=== PATIENT | female | born 1970 | race Caucasian/White ===

== ENCOUNTER 2025-08-05 11:45 | Outpatient (AMB) | payer MEDICARE, MEDICAID, SELFPAY ==
[2025-08-05 12:01] VITALS: BMI 33.3
--- NOTE | 2025-08-05 12:01 | A.PHYSOV_ITS ---
Vital Signs 08/05/25 12:01 Height 5 ft 8 in Weight 219 lb BMI 33.3 Intake Visit Reasons: F/U AFTER INJECTION 06/25/2025 Intake Note: Patient is a 55 year old female here today for a follow up after injection. Patient had a C7-T1 BECCA on 06/25/25. Psychologist Engineering Required: No Allergies amoxicillin Allergy (Unknown, Verified 08/05/25 12:03) Unknown aspirin Allergy (Unknown, Verified 08/05/25 12:03) Unknown HPI Comments Details: History of Present Illness The patient is a 55 year old female presenting for follow-up and management of chronic cervical radiculitis, low back pain as well as right knee pain. Patient underwent C7-T1 BECCA on 06/25/2025. She reports 70% reduction of her pain. She reports improved range of motion of her neck and less tingling in her upper extremity. Patient is very happy with her results. She also underwent left- sided L3-4, L4-5, L5-S1 facet injection on 05/03/2025. She reports 80% reduction of her pain. She reports that her pain is returning despite performing her physician directed home exercise plan and using her medications as prescribed. Patient is requesting repeat facet injection. We did place referral for lumbar facet ablation but she has not heard from the facility as of yet. She is also requesting cortisone injection to her right knee today. She denies any trauma. She has a pain level today of 7/10 worse with activity. Pain Description - Location: Reports horrible pain in the back and associated knee pain. - Quality: Describes the back pain as nerve pain. - Radiation: Experiences numbness in her leg associated with the back pain. - Alleviating Factors: Muscle relaxers help with the back pain. - Exacerbating Factors: Standing for approximately five minutes now brings on leg numbness. - Interference with Function: She is delaying an eventual knee replacement due to caregiving responsibilities for her parents. Procedure: C7-T1 BECCA 02/16/2024 50% reduction of her pain C7-T1 BECCA 06/05/2024 80% reduction of her pain Left L4 TFESI 07/24/2024 50% reduction of her pain Left L3-4, L4-5, L5-S1 facet injection 05/03/2025 80% reduction of her pain C7-T1 BECCA 06/25/2025 70% reduction of her pain PFS Surgical History (Updated 08/05/25 @ 12:07 by Mairta Cavazos MA) History of bladder surgery Hx of lumbosacral spine surgery History of ankle surgery H/O: hysterectomy H/O arthroscopic knee surgery H/O: knee surgery Social History (Updated 08/05/25 @ 12:05 by Marita Cavazos MA) Alcohol intake: current Comment: socially Patient Tobacco Use Status: Current someday Tobacco user Use of substances other than those prescribed or required for medical reasons: Yes Substance Use Type: Marijuana Review of Systems Narrative Review of Systems - Musculoskeletal: Reports chronic back pain and knee pain. - Neurological: Reports worsening numbness in her leg. - Dermatological: Reports developing blisters on her nose from the pressure of eyeglasses. Physical Exam Exam Exam: Physical Exam Cervical Spine: Examination of the cervical spine, there is no visible swelling or deformity. She is less tender to the upper trapezius. She has improved range of motion of her cervical spine. Special Tests: Axial Compression test: Negative Spurlings test: Negative Lhermitte's sign is Negative Upper Extremities: Full range of motion bilateral upper extremities. 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 Neuro: Sensation: Intact to upper extremities bilateral to light touch Strength C5 (Elbow Flexion): 5/5 on the left and 5/5 on the right. C6 (Elbow Ext): 5/5 on the left and 5/5 on the right. C7 (Elbow Ext): 5/5 on the left and 5/5 on the right. C8 (Finger Flex): 5/5 on the left and 5/5 on the right. T1 (Finger Abd/Add): 5/5 on the left and 5/5 on the right. DTR: C5 (Biceps): Left 2 Right 2 C6 (Brachioradialis): Left 2 Right 2 C7 (Triceps): Left 2 Right 2 Pacheco sign: Negative No pathologic clonus. No involuntary movement. Lumbar Spine: She is tender to the lower lumbar facets. She is otherwise nontender. Full range of motion of her lumbar spine. She does have an increase in pain with facet loading on the left. Special Tests: Lhermittes sign was negative Heel Toe walk is normal Left straight leg raise: Negative Right straight leg raise: Negative Special tests Helen test is negative Ganslen's test is negative SI Joint compression test negative Magdy test negative Piriformis stretch is negative Lower Extremities: Examination of her right knee, there is no effusion or deformity. She is tender to the medial joint line. She is otherwise nontender. Full range of motion of her knee in flexion-extension. Her ligaments are intact. Neuro: Sensation: Intact to lower extremities bilaterally Strength L2 (Psoas): 5/5 on the left and 5/5 on the right. L3 (Quads): 5/5 on the left and 5/5 on the right. L4 (Ant tibialis): 5/5 on the left and 5/5 on the right. L5 (EHL) 5/5 on the left and 5/5 on the right. S1 (Gastroc): 5/5 on the left and 5/5 on the right. DTR L4: (Patellar) Left 2 Right 2 S1: (Achilles) Left 2 Right 2 Babinski Downgoing No pathologic clonus. No involuntary movement. Vital Signs: BMI result Body Mass Index 33.3 Office Procedures AMB Knee Injection AMB Knee Injection Procedure Details: Right Knee injection: The risks, benefits and complications of the right knee injection were discussed with the patient including but not limited to increased serum glucose, infection, nerve pain, fat atrophy, pigment augmentation, bleeding and pain. All questions were answered to the patient's satisfaction. Verbal consent was obtained. The patient was eager to proceed. Using aseptic technique with Betadine, ethyl chloride was then used to desensitize the skin. Using a 22-gauge needle 40 mg of Kenalog and 3 mL 2% lidocaine were injected into the knee joint. A Band-Aid was applied. Patient tolerated the procedure well without immediate complication. Postinjection instructions were given. Knee Injection - : Right All charges added?: Procedure code (CPT) selection complete Office Meds Kenalog 40 mg/mL suspension for injection Performing Provider: EVE Bansal Performing Location: [facility] Administered by: EVE Bansal on 08/05/25 12:50 Dose Route Admin Location Dispensed Lot Number Expiration Date [facility] [place]NOTE 2] [employer] T[employer]or Apprentice 40 mg intra-articular 1 mL [id number] [employer] Total Dispensed Waste 1 mL 0 % lidocaine (PF) 20 mg/mL (2 %) injection solution Performing Provider: EVE Bansal Performing Location: [facility] Administered by: EVE Bansal on 08/05/25 12:50 Dose Route Admin Location Dispensed Lot Number Expiration Date [employer] Tailor Apprentice 60 mg intra-articular 50 mL [id number] Total Dispensed Waste 50 mL 0 % Assessment & Plan Assessment & Plan (1) Cervical radiculopathy: Code(s): M54.12 - Radiculopathy, cervical region Category: Medical (2) Vertebrogenic low back pain: Code(s): M54.51 - Vertebrogenic low back pain Category: Medical (3) Osteoarthritis of right knee: Code(s): M17.11 - Unilateral primary osteoarthritis, right knee Category: Medical Qualifiers: Osteoarthritis type: primary Qualified Code(s): M17.11 - Unilateral primary osteoarthritis, right knee Plan Pain Management - Analgesia: The patient reports that muscle relaxers help her back pain. - She received facet shots in April which were helpful, but the effects are wearing off. - Her last cortisone shot for knee pain was in February. - Activities of Daily Living: Leg numbness now begins after standing for only five minutes. 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 - Adverse Effects: She notes that previous facet shots were painful. - Aberrant Drug Related Behaviors: None discussed. Plan Patient was informed and verbally consented to the use of an ambient scribe for clinic note documentation during this visit. 1. Chronic Low Back Pain, patient responded very well to lumbar facet injection in April with greater than 80% reduction of her pain for 3 months. Patient's pain has returned despite performing her physician directed home exercise plan and using her medications as prescribed. She is requesting repeat lumbar facet injection which I will order today. 2. Osteoarthritis Of The Knee The patient requested treatment for her knee pain. Her last knee injection was in February, making her eligible for another. A cortisone injection will be administered to the knee during this visit after obtaining consent. 3. Cervical radiculopathy. Patient responded very well to C7-T1 BECCA on 2024. She will continue her home exercise plan and medications as prescribed. Discussion Notes I discussed the patient's ongoing back pain and the waning effectiveness of her April facet injections. I clarified that a radiofrequency ablation would target her back pain but would not help her worsening leg numbness. We agreed that she would get a second opinion from Dr. Mike, an orthopedic surgeon, before making a decision on the ablation. We also discussed her knee pain, and since her last injection was in February, I offered to give her a cortisone shot today, to which she agreed after I mentioned obtaining consent. Patient Instructions - Please make an appointment to see Dr. Mike for a second opinion on your back pain. - We will perform a cortisone injection in your knee today for pain relief. - After your appointment with Dr. Mike, we can discuss whether a radiofrequency ablation for your back is the right choice for you. - Continue using your muscle relaxers as they are helping your back pain. Orders: Orders AMB Knee Injection Today M17.11 - Unilateral primary osteoarthritis, right knee Coding Level of Care Code Tele Est Pt Level 4 (37333) Diagnoses Cervical radiculopathy M54.12 Vertebrogenic low back pain M54.51 Primary osteoarthritis of right knee M17.11 Osteoarthritis type: primary CPT Codes AMB Knee Injection - Hip/Bursa Injection - : Right ([id number]) Time Spent (min) 30 Comment 30 minutes reviewing the medical record and imaging, seeing the patient and docu menting.
== END 2025-08-05 12:37 | disposition home or self-care (01) ==
LOC: HO.HPHYS 11:45
PROVIDERS: PCP Internal Medicine; Visit Provider Physician Assistant
DX: M54.12 Radiculopathy, cervical region (principal); M54.51 Vertebrogenic low back pain; M17.11 Unilateral primary osteoarthritis, right knee
CPT/HCPCS: 20610; 99214

== ENCOUNTER → 2025-08-05 11:45 | Outpatient (BNVA) | payer MEDICARE, MEDICAID, SELFPAY | PROVIDERS: PCP Internal Medicine; Visit Provider Physician Assistant | DX: M17.11 Unilateral primary osteoarthritis, right knee (principal); M54.12 Radiculopathy, cervical region; M54.51 Vertebrogenic low back pain | CPT/HCPCS: 20610; 99212; J2003; J3301 ==

== ENCOUNTER 2025-08-16 11:05 | Outpatient (REF) | payer MEDICARE, MEDICAID, SELFPAY | END 2025-08-16 11:06 | disposition home or self-care (01) | LOC: HO.HPHYSR 11:05 | PROVIDERS: PCP Internal Medicine; Visit Provider Physical Medicine & Rehabilitation | DX: M47.816 Spondylosis without myelopathy or radiculopathy, lumbar region (principal) | CPT/HCPCS: 64493; 64494; 64495; J2003; J3301; Q9967 ==

== ENCOUNTER 2025-08-16 11:05 | Outpatient (AMB) | payer MEDICARE, MEDICAID, SELFPAY ==
[2025-08-16 11:23] VITALS: BP 117/83; PULSE 99; TEMP 36.4; BMI 33.3
--- NOTE | 2025-08-16 11:23 | A.PHYSOV ---
Vital Signs 08/16/25 11:23 Height 5 ft 8 in Weight 219 lb BMI 33.3 BP 117/83 Pulse 99 Temp 97.6 F Intake Visit Reasons: Left Lumbar Facet Injection L3-4 L4-5 L5-S1 Intake Note: Patient is a [age] year old female in office today for a Left Lumbar Facet Injection L3-4 L4-5 L5-S1. Library Specialist Required: No Allergies amoxicillin Allergy (Unknown, Verified 08/16/25 11:23) Unknown [facility] Medical History (Updated 08/16/25 @ 11:35 by Jose Flores DO) Spondylosis of lumbar region without myelopathy or radiculopathy Surgical History History of bladder surgery Hx of lumbosacral spine surgery History of ankle surgery H/O: hysterectomy H/O arthroscopic knee surgery H/O: knee surgery Social History Alcohol intake: current Comment: socially Patient Tobacco Use Status: Current someday Tobacco user Substance Use Type: Marijuana Physical Exam Vital Signs: Last Vital Signs Temp 97.6 F 08/16/25 11:23 Pulse 99 08/16/25 11:23 BP 117/83 08/16/25 11:23 BMI result Body Mass Index 33.3 Office Procedures Procedure Details: Procedure performed: Left L3-L4, L4-L5, L5-S1 facet joint injections Preop diagnosis: Lumbar facet arthropathy Postop diagnosis: The same Anesthesia: Local After informed consent was obtained, patient was brought into the procedure room and placed in the prone position on the procedure table. Skin over the lumbar sacral area was prepped and draped in the usual sterile manner. The facet joints indicated above were visualized utilizing fluoroscopy. For each joint 3.5 inch 22 gauge spinal needle was introduced percutaneously and advanced to enter the joint space. Needle placement was verified utilizing 0.2 cc of Omnipaque contrast solution. Each joint received total 1.5 cc of therapeutic solution containing 20 mg of of triamcinolone and 2% lidocaine. Radiation exposure was recorded and documented in chart. 49697 Lumbar Facet Inj SINGLE Level- use with FL Gd order: [id number] - One Side 67706 Lumbar Facet Inj SECOND Level- use with FL Gd order: [id number] - One Side 43433 Lumbar Facet Inj THIRD or Greater- use w FL Gd order: [id number] - Bilateral (Left side) Procedure code (CPT) selection complete Office Meds Kenalog 40 mg/mL suspension for injection Performing Provider: Jose Flores DO Performing Location: [facility] Administered by: Jose Flores DO on 08/16/25 11:36 Dose Route Admin Location Dispensed Lot Number Expiration Date [facility] Telecommunication Operator 60 mg intra-articular 2 mL [id number] [employer] Total Dispensed Waste 2 mL 25 % lidocaine (PF) 20 mg/mL (2 %) injection solution Performing Provider: Jose Flores DO Performing Location: [facility] Administered by: Jose Flores DO on 08/16/25 11:36 Dose Route Admin Location Dispensed Lot Number Expiration Date [facility] Telecommunication Operator 40 mg intra-articular 5 mL [id number] [employer] Total Dispensed Waste 5 mL 60 % Omnipaque 300 300 mg iodine/mL intravenous solution Performing Provider: Jose Flores DO Performing Location: [facility] Administered by: Jose Flores DO on 08/16/25 11:36 Dose Route Admin Location Dispensed Lot Number Expiration Date [facility] Telecommunication Operator 3 mL intra-articular 10 mL [id number] Total Dispensed Waste 10 mL 70 % Assessment & Plan Assessment & Plan (1) Spondylosis of lumbar region without myelopathy or radiculopathy: Code(s): M47.816 - Spondylosis without myelopathy or radiculopathy, lumbar region Category: Medical Plan: Left lumbar facet injections Orders: Orders FL Gd Lumbar Spine Facet Inj Today M47.816 - Spondylosis without myelopathy or radiculopathy, lumbar region AMB Lumbar Facet Injection Today M47.816 - Spondylosis without myelopathy or radiculopathy, lumbar region Coding Level of Care Code Procedure Only Diagnoses Spondylosis of lumbar region without myelopathy or radiculopathy M47.816 CPT Codes Lumbar Facet Injection - 22290 Thoracic Facet Inj CPT: 89069 - One Side ([id number]) Lumbar Facet Injection - 29446 Thoracic Facet Inj CPT: 62485 - One Side ([id number]) Lumbar Facet Injection - 33297 Thoracic Facet Inj CPT: 94048 - Bilateral ([id number])
--- OUTSIDE RECORDS SUMMARY | 2025-08-16 13:02 | XMS_ITS ---
Author Name [facility] Organization Unknown Care Team Organization Name Specialty Phone Email Start Date End Da te [facility]CO 04/17/2025 [facility] Castillo Arevalo Primary Care 02/04/20232023 [facility] Termed, PROVIDER Primary Care 07/06/202203/29
--- OUTSIDE RECORDS SUMMARY | 2025-08-16 13:02 | XMS_ITS ---
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 She is currently stable with her current regimen. Continue the following: Amitriptyline 10mg qHS Famotidine 20mg daily Omeprazole 40mg BID Colestipol 1g, two tablets daily Zofran 4mg tablet PRN nausea, which is typically once daily in the mornings. I will adjust her prescription to reflect daily use as she states she often runs out before her next refill. Side effects of these medications reviewed. Orders: ondansetron (ZOFRAN) 4 mg tablet; Take 1 tablet (4 mg total) by mouth 1 (one) time each day. Assessment & Plan (11/09/2024 5:13 PM EDT): Refill Zofran, continue use only as needed. Continue amitriptyline 10mg qHS. Orders: ondansetron (ZOFRAN) 4 mg tablet; Take 1 tablet (4 mg total) by mouth every 8 (eight) hours if needed for nausea or vomiting. amitriptyline (ELAVIL) 10 mg tablet; Take 1 tablet (10 mg total) by mouth at bedtime. Irritable bowel syndrome 11/09/2024 Vomiting and diarrhea 07/02/2024 Overview (07/02/2024): Chronic issue, experienced for 5+ years. Negative labwork at last visit 05/01/24. Improving with zofran as needed GES: normal gastric emptying 04/24/24 UGI series - small HH, GERD otherwise unremarkable 02/20/24 Last C+E 11/2020 Assessment & Plan (11/09/2024 5:13 PM EDT): Continue colestipol as needed for diarrhea. Orders: amitriptyline (ELAVIL) 10 mg tablet; Take 1 tablet (10 mg total) by mouth at bedtime. colestipoL (COLESTID) 1 gram tablet; Take 1 tablet (1 g total) by mouth 2 (two) times a day if needed (diarrhea). Assessment & Plan (07/02/2024 5:36 PM EST): Repeat colonoscopy and upper endoscopy Trial of amitriptyline 10 mg PO qHS Follow up in 3 months Consider trial of discontinuing Mounjaro, may be contributing to severity of symptoms. Class 2 severe obesity due t o excess calories with serious comorbidity and body mass index (BMI) of 37.0 to 37.9 in adult 06/18/2024 Long-term current use of inj ectable noninsulin antidiabetic medication 10/25/2023 Class 2 obesity 09/12/2023 Current smoker 09/12/2023 Osteoarthritis of left knee 09/12/2023 Polyp of corpus uteri 09/12/2023 Spondyloarthropathy 09/12/2023 Cervical spondylosis 07/12/2023 Overview (05/31/2024): Last Assessment & Plan: Ms. De La Cruz describes diffuse neck pain without specific radiation to the arms, clumsiness or weakness. We reviewed her cervical spine MRI which has some mild findings but nothing that would warrant surgical intervention. We discussed physical therapy traction, posture correction, and avoiding heavy lifting. Assessment & Plan (01/08/2025 2:34 PM EDT): I reviewed the imaging findings in detail with Ms. De La Cruz. She does have degenerative changes worse at C6-7 but her alignment is normal, there is no severe foraminal stenosis and while there is some central stenosis, this is not a set up for myelopathy. Her main complaint is of neck pain and occasions of poor mobility. We discussed the option of surgery which at a minimum would be C6-7 ACDF, at a maximum we would include 1 or 2 other levels. Overall, when this is done purely for neck pain and without the intended relief of radiculopathy, the lasting results are not as promising. She has full mobility on her good days now and will obviously be more limited with the fusion. She has not tried physical therapy in many years and does not recall ever trying cervical traction. I recommended this first as it may relieve this feeling of a heavy weight on her shoulders. If this works for her, we can prescribe a unit to use at home. She has been unable to try things like acupuncture due to finances and that it is not covered by insurance. Lumbar stenosis with neurogenic claudication Overview (05/31/2024): Last Assessment & Plan: Patient is just over 2 weeks s/p L4-5 decompression. She states she seen good results from surgery, she no longer has the pinched nerve feeling , no pain radiating down the legs, she is moving around much better. She states she did not realize how much the lumbar stenosis was holding her back the last 2 years. She has chronic numbness tingling in the feet, has history of diabetes, but has noticed that that is also somewhat improved. She denies any fevers, sweats chills, wound drainage. She still has some incisional pain, was using the oxycodone sparingly, but feels it would still help her at night. She has Ultram at home for her chronic arthritis pain, but has not been using it while on the oxycodone. Ms. De La Cruz is doing well postop, can follow-up as needed. All postop questions answered. She does not feel she needs physical therapy, has been increasing her activity as tolerated, doing some light lillie chi and walking. I gave her a refill on her oxycodone #20 tabs, to use at bedtime as needed. She will call with any concerns or questions. Type 2 diabetes mellitus wit hout complication, without long-term current use of insulin 04/23/2022 Type 2 diabetes mellitus with peripheral neuropa thy 04/23/2022 Overview (02/28/2025): Dx 2021, ophtho - Jun Eye; foot exam December 2022 DUB (dysfunctional uterine bleeding) 01/01/2020 Hypertension 01/01/2020 Hypothyroidism 04/25/2018 Overview (05/31/2024): Dr. Verde Mammogram abnormal 08/15/2017 Allergic rhinitis 07/27/2017 Vitamin D deficiency 04/24/2017 Anxiety 04/21/2017 Hypercholesterolemia 02/08/2017 Thyroid neoplasm malignant 07/19/2016 Overview (05/31/2024): Follows with endocrinology, Dr. 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 Botello then Dr. Hampton Esophageal reflux 07/12/2013 Assessment & Plan (11/09/2024 5:13 PM EDT): Continue omeprazole 40mg BID for GERD. Prescribing Famotidine 20mg PRN for heartburn, indigestion, nausea. Try in place of zofran, if no improvement after 20-25 minutes please take Zofran. Orders: famotidine (Pepcid) 20 mg tablet; Take 1 tablet (20 mg total) by mouth if needed for heartburn or indigestion. omeprazole (PriLOSEC) [address] capsule; Take 1 capsule (40 mg total) by mouth 2 (two) times a day. Fibromyalgia 10/25/2011 Current Treatment and Therapy Plans No current plan information found. Past Treatment and Therapy Plans No past plan information found. Lifetime Dose Tracking * Chemical Lifetime Dose Automatic Entry Manual Entr y Fluoro Time 0.46 minutes 0.46 minutes 0 minutes Air Kerma 4.08 mGy 4.08 mGy 0 mGy
--- OUTSIDE RECORDS SUMMARY | 2025-08-16 13:02 | XMS_ITS | Clinical Summary ---
Author Organization [facility] Prior to 01/26/[address] [place] [address] Care Team Providers Care Regulatory Intern Name Role Phone Noemi Collins MD Primary Care Provider [phone] Allergies Active Allergy Reactions Criticality Noted Date Comments Amoxicillin 08/09/2017 Aspirin 08/09/2017 Medications Medication Sig Dispensed Refills Start Date End Date Status cholecalciferol (VITAMIN D3) 1000 UNITS tablet Take 2,000 Units by mouth daily. 0 Active doxycycline (ADOXA) 100 MG tablet Take 100 mg by mouth 2 (two) times a day. 0 Active LORazepam (ATIVAN) 0.5 MG tablet Take 0.5 mg by mouth every 6 (six) hours as needed. 0 Active Multiple Vitamin (MULTI VITAMIN DAILY PO) Take by mouth. 0 Active naproxen (NAPROSYN) 500 MG tablet Take 500 mg by mouth 2 (two) times a day with meals. 0 Active omeprazole (PRILOSEC) 20 MG capsule Take 20 mg by mouth daily. 0 Active Probiotic Product (PROBIOTIC PO) Take by mouth. 0 Active sulfaSALAzine (AZULFIDINE) 500 MG EC tablet Take 500 mg by mouth 4 (four) times a day. 0 Active levothyroxine (SYNTHROID, LEVOXYL) tablet 200 mcg Take 200 mcg by mouth every morning on an empty stomach. 0 Active traMADol (ULTRAM) 50 MG tablet Take 50 mg by mouth every 6 (six) hours as needed for pain. 0 Active norethindrone (ILEANA) 0.35 MG tablet Take 1 tablet by mouth daily. 0 Active Active Problems No known active problems Family History Medical History Relation Name Comments Cancer Maternal Aunt breast Cancer Mother breast Relation Name Status Comments Maternal Aunt Mother Social History Tobacco Use Types Packs/Day Years Used Date Smoking Tobacco: Former Cigarettes 1 Smokeless Tobacco: Never Alcohol Use Standard Drinks/Week Comments No 0 (1 standard drink = 0.6 oz pur e alcohol) Sex and Gender Information Value Date Recorded Sex Assigned at Not on file Gender Identity Not on file Sexual Orientation Not on file Job Start Date Occupation Industry Not on file Not on file Not on file Last Filed Vital Signs Vital Sign Reading Time Taken Comments Blood Pressure 141/90 09/13/2017 1:15 PM EST Pulse 93 09/13/2017 1:15 PM EST Temperature - - Respiratory Rate - - Oxygen Saturation - - Inhaled Oxygen Concentration - - Weight 98.4 kg (217 lb) 09/13/2017 1:15 PM EST Height 170.2 cm (5' 7 ) 09/13/2017 1:15 PM EST Body Mass Index 33.99 09/13/2017 1:15 PM EST Plan of Treatment Health Maintenance Due Date Last Done Comments Hepatitis B Vaccines (1 of 3 - 3-dose series) 1968 Hepatitis C Screening 1968 COVID-19 Vaccine (#1) 1968 Depression Screening 1980 Preventative Health Evaluation 02/16/1986 DTap / Tdap / Td (1 - Tdap) 02/16/1987 Cervical Cancer Screening (P ap Smear) 02/16/1989 Colon Cancer Screening (Colonoscopy) 02/16/2013 Breast Cancer Screening (Mammogram) 02/16/2018 Shingrix-Zoster Vaccine (1 of 2) 02/16/2018 Influenza Vaccine (#1) 2025 Pneumococcal Vaccine Aged Out No long er eligible based on patient's age to complete this topic RSV Ped < 20 months Aged Out No longe r eligible based on patient's age to complete this topic Care Teams Regulatory Intern Relationship Specialty Start Date End Date Noemi Collins MD [address] [place] [id number] PCP - General Family Medicine 08/09/17
--- OUTSIDE RECORDS SUMMARY | 2025-08-16 13:03 | XMS_ITS | Clinical Summary ---
Author Organization [facility] Address [address] [place] [phone] Phone Care Team Providers Care Counseling Case Manager Name Role Phone Castillo Arevalo MD Primary Care Provider Allergies Active Allergy Reactions Criticality Noted Date Comments Amoxicillin Diarrhea 06/02/2017 Aspirin 07/19/2016 Drug interaction with current list of medcation House Dust 10/10/2024 [place] (Viscum Pini - From [place]) 02/18/2025 Medications atorvastatin (LIPITOR) 80 MG tablet Take 80 mg by mouth every morning. 12/14/19 Active multivitamin per tablet Take by mouth. Activ e Lactobacillus acidophilus (PROBIOTIC ORAL) Take by mouth daily. Active ascorbic acid, vitamin C, (VITAMIN C) 1000 MG tablet Take 2,000 mg by mouth daily as needed (cold season). Active traMADoL (ULTRAM) 50 mg tablet Take 50 mg by mouth 3 (three) times a day. Active sulindac (CLINORIL) 200 MG tablet Take 200 mg by mouth 2 (two) times a day with meals. 10/28/19 Active losartan (COZAAR) 50 MG tablet Take 1 tablet by mouth every morning. 12/10/19 Active LORazepam (ATIVAN) 0.5 MG tablet Take 1 tablet by mouth once as needed. 10/29/19 Active omeprazole (PRILOSEC) 40 MG capsule Take 40 mg by mouth 2 (two) times a day. 10/20/19 Active clindamycin (CLEOCIN) 300 MG capsule Take 600 mg by mouth daily as needed (dental appt). Active acetaminophen (TYLENOL ARTHRITIS PAIN) 650 MG CR tablet Take 1,300 mg by mouth 2 (two) times a day. Active loratadine (CLARITIN) 10 mg tablet Take 10 mg by mouth daily. Active cholecalciferol (VITAMIN D3) 25 MCG (1,000 unit) tablet Take 2,000 Units by mouth daily. Active colestipol (COLESTID) 1 gram tablet TAKE 2 TABLETS BY MOUTH DAILY. MAY INCREASE TO 2 TIMES A DAY. IF NO IMPROVEMENT Active ondansetron (ZOFRAN) 4 MG tablet Take 4 mg by mouth every 8 (eight) hours as needed for nausea. Active amitriptyline (ELAVIL) 10 MG tablet Take 1 tablet by mouth nightly at bedtime. 09/04/19 25 Active cetirizine (ZYRTEC) 10 MG tablet Take 10 mg by mouth daily. Active ONETOUCH UKTRA2 meter kitIndications:Typ e 2 diabetes mellitus with peripheral neuropathy To test blood glucose daily dx E11.42 1 each 02/19/20 25 Active ONETOUCH DELICA PLUS LANCET 30 gauge MiscIndications:Ty pe 2 diabetes mellitus with peripheral neuropathy Place 1 each onto the skin 2 (two) times a day. 200 each 3 02/19/20 25 Active ONETOUCH ULTRA TEST Strp stripsIndications: Type 2 diabetes mellitus with peripheral neuropathy USE TO TEST BLOOD SUGAR TWICE DAILY 100 strip 3 06/04/20 25 Active SYNTHROID 175 mcg tabletIndications: Postoperative hypothyroidism 1 tab orally six days/week, skip 7th day 78 tablet 3 06/17/20 25 Active metFORMIN (GLUCOPHAGE-XR) 500 MG 24 hr tabletIndications: Type 2 diabetes mellitus with peripheral neuropathy TAKE 3 TABLETS DAILY 270 tablet 3 06/17/20 25 Active gabapentin (NEURONTIN) 300 MG capsuleIndications :Type 2 diabetes mellitus with peripheral neuropathy Take 1 capsule (300 mg total) by mouth 3 (three) times a day. 270 capsule 3 06/17/20 25 Active tirzepatide (MOUNJARO) 12.5 mg/0.5 mL PnIj subcutaneous penIndications:Typ e 2 diabetes mellitus with peripheral neuropathy Inject 0.5 mL (12.5 mg total) under the skin every 7 days. 2 mL 5 08/01/20 25 Active hydrocortisone 1 % cream Apply topically. 08/14/20 24 025 tirzepatide (MOUNJARO) 10 mg/0.5 mL PnIj subcutaneous penIndications:Typ e 2 diabetes mellitus with peripheral neuropathy Inject 0.5 mL (10 mg total) under the skin every 7 days. 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 She is not using any medications to cause hypoglycemia. She is getting some response from the trulicity but not optimal enough, especially in the setting of up coming back surgery. Will try changing her mounjaro to see if we can get a glucose response from it with the added benefit of the potential for more weight loss. Will not cancel her trulicity prescription until we know the mounjaro is covered. Once she finishes her last dose of trulicity she will then the following week start the mounjaro. Continue to work on eating healthy and trying to be active. To call or message with any issues managing her glucose levels. Up to date with [facility]. Labs ordered today Assessment & Plan (04/26/2023 8:16 AM EDT): Control is reasonable based upon the patient's recall of her SMBG readings. No frequent or severe hypoglycemia. Her glucose levels are likely running higher due to the dual infection of shingles and a yeast infection. She is being treated for both. Will try increasing her trulicity to 1.5 mg to help improve her glucose control and potentially see a little bit of weight loss which will help improve her insulin sensitivity. Continue to work on eating healthy and being active. To call or message with any issues managing her glucose levels. Up to date with [facility]. Labs ordered today Type 2 diabetes mellitus with peripheral neuropa thy 04/23/2022 12/30/2022 Overview (12/30/2022): Dx 2021, ophtho - Jun Eye; foot exam December 2022 Assessment & Plan (06/17/2025 12:46 PM EDT): Control is good based upon the patient's SMBG readings. She is not using any medications to cause hypoglycemia. Will try increasing her mounjaro to 10 mg to help further improve her glucose control. Continue to work on eating healthy and being active. To call or message with any issues managing her glucose levels. Up to date with [facility]. Labs ordered. I have maintained a long-term, longitudinal relationship with this patient, overseeing care of chronic conditions, including diabetes. This care relationship has significantly influenced my decision-making and treatment plans during today's encounter. Assessment & Plan (02/18/2025 12:14 PM EDT): Control is good based upon the patient's limited SMBG readings. She is not using any medications to cause hypoglycemia. Will maintain her regimen. Continue to work on eating healthy and being active. To call or message with any issues managing her glucose levels. Up to date with [facility]. Labs ordered. I have maintained a long- term, longitudinal relationship with this patient, overseeing care of chronic conditions, including diabetes. This care relationship has significantly influenced my decision-making and treatment plans during today's encounter. Assessment & Plan (09/25/2024 8:12 AM EST): Control is unknown as the patient is not consistently checking her glucose levels. Historically control has been good based upon her last A1C of 6.5%. She is not using any medications to cause hypoglycemia. She would like to try increasing her mounjaro to 10 mg a week to see if this will further improve her glucose control. Continue to work on eating healthy and being active. To call or message with any issues managing her glucose levels. Up to date with [facility]o, annual is scheduled for September. Labs ordered Assessment & Plan (05/15/2024 3:16 PM EDT): Control has been good. Continue to work on eating healthy & keeping active. To call or send in BG with problems with glycemic control. [facility] Umal[facility]creat up to date, normal. Foot & nail care good. Given short duration of DM, suspect neuropathy more related to back. Will refill gabapentin, did advise she restart at 1 tablet daily & titrate back up to the tid dosing. Will do labs today. To call if hasn't heard from us within 1-2 weeks. BP under reasonable control. Assessment & Plan (01/30/2024 12:31 PM EDT): Control is good based upon the patient's SMBG readings. She is not using any medications to cause hypoglycemia. She was finally able to get her moujaro after being off of it for 2 weeks due to lack of supply at the pharmacy. She will restart her mounjaro later today. Continue to work on eating healthy and being active. To call or message with any issues managing her glucose levels. Due to schedule annual for [facility]. Labs were done with [facility] will call for results. Assessment & Plan (10/25/2023 11:18 AM EST): Control deteriorated after surgery, likely due to stress & being off of trulicity. Will shift to mounjaro. Continue to work on eating healthy & keeping active. To call or send in BG with problems with glycemic control. [facility] Will do labs today. o call if hasn't heard from us within 1-2 weeks. BP under reasonable control. Assessment & Plan (12/30/2022 1:15 PM EDT): Control good. Continue to work on eating healthy & keeping active. To call or send in BG with problems with glycemic control. [facility] Foot & nail care good. Will do labs today. To call if hasn't heard from us within 1-2 weeks. BP under reasonable control. Discussed use of GLP1 agonists w/ risks/benefits. Thyroid CA was NOT medullary so no contraindication. No hx pancreatitis. Discussed could add one of the GLP1 agonists, depending on labs might lower dose of metformin as may not need both agents. Hypertension 01/01/2020 12/30/2022 Postoperative hypothyroidism 04/25/201811/2022 Overview (12/30/2022): Dr. Verde Assessment & Plan (06/17/2025 12:45 PM EDT): Will check levels to determine if medication adjustments are needed Assessment & Plan (02/18/2025 12:12 PM EDT): Will check levels to determine if medication adjustments are needed Assessment & Plan (09/25/2024 8:07 AM EST): Will check levels to determine if medication adjustments are needed Assessment & Plan (05/15/2024 3:14 PM EDT): Will repeat labs today & adjust as appropriate. To call if hasn't heard from me within 1-2 weeks. Assessment & Plan (01/30/2024 12:29 PM EDT): Had blood work done with [facility] will get results to determine if medication adjustments are needed Assessment & Plan (10/25/2023 11:16 AM EST): Reports good consistency taking rx appropriately, has from [facility]. Weight has come down slightly. Will repeat labs today & adjust as appropriate. To call if hasn't heard from me within 1-2 weeks. Assessment & Plan (07/26/2023 12:00 PM EST): Will check levels to determine if medication adjustments are needed Assessment & Plan (04/26/2023 8:16 AM EDT): Will check levels to determine if medication adjustments are needed Assessment & Plan (12/30/2022 1:13 PM EDT): Reports good consistency taking rx appropriately. Weight has been stable. Will repeat labs today. To call if hasn't heard from me within 1-2 weeks. Vitamin D deficiency 04/24/2017 12/30/2022 Assessment & Plan (01/30/2024 12:29 PM EDT): Had blood work done with [facility] will get results to determine if medication adjustments are needed Anxiety 04/21/2017 12/30/2022 Hypercholesterolemia 02/08/2017 12/30/2022 Thyroid neoplasm malignant 07/19/201612/30 Overview (12/30/2022): Hurthle cell CA, microscopic papillary CA, s/p total thyroidectomy & WALLS, no evidence of residual or recurrent disease Follows with endocrinology, Dr. Verde Assessment & Plan (05/15/2024 3:14 PM EDT): Has had no evidence of residual or recurrent disease. Assessment & Plan (10/25/2023 11:16 AM EST): Has had no evidence of residual or recurrent disease. Assessment & Plan (12/30/2022 1:13 PM EDT): No evidence of residual or recurrent disease. Spondyloarthritis 01/30/2015 12/30/2022 Overview (12/30/2022): Sees ATC, Dr. Botello then Dr. Hampton Esophageal reflux 07/12/2013 12/30/2022 Fibromyalgia 10/25/2011 12/30/2022 Encounters Date Type Department Care Team Description 07/31/2025 Telephone [facility] [address] [place] [address] Lisa Grijalva MA Medication Refill (Mounjaro) 07/02/2025 Telephone [facility] [address] [place] [address] Bing Navarro PA-C Patient Returned Call; Results 06/27/2025 3:53 PM EDT - 06/27/2025 11:59 PM EDT Hospital Encounter [facility] [address] [place] [address] Bing Navarro PA-C Discharge Disposition: Home or Self Care 06/17/2025 11:40 AM EDT Office Visit [facility] [address] [place] [address] Bing Navarro PA-C Type 2 diabetes mellitus with peripheral neuropathy (Primary Dx); Postoperative hypothyroidism 06/01/2025 Refill [facility] [address] [place] [phone] Bing Navarro PA-C Medication Refill from Last 3 Months Immunizations Immunization Administration Dates Next Due COVID-19 (Pre-06/20) Moderna Vaccine, mRNA, PF 10/31/2020,10/06/2020,10/03/2020 COVID-19 (Pre-06/20) Pfizer Vaccine, mRNA, PF 09/06/2021 INFLUENZA, SPLIT VIRUS, TRIVALENT PF 05/04/2017, 06/05/2015,07/12/2013 INFLUENZA, SPLIT VIRUS, TRIV ALENT W/ PRESERVATIVE IM 04/25/2018,04/28/2012,06/14/2011 Influenza High-Dose Trivalen t Preservative Free IM 06/25/2016 Influenza Quadrivalent Intranasal 06/20/2022 Influenza Quadrivalent MDCK Preservative Free IM 07/27/2021,05/31/2019 Influenza Quadrivalent Preservative Free IM 04/30 Pneumococcal polysaccharide PPSV23 06/20/2022 Td (adult),2 Lf Tetanus Toxo id, PF, Adsorbed 11/20/2002 Tdap 02/23/2022 Social History Tobacco Use Types Packs/Day Years Used Date Smoking Tobacco: Some Days Cigarettes 1 30 Started: 1986; Last attempted to quit: 2016 Cigars Started: 2016 Smokeless Tobacco: Never Tobacco Cessation:Ready to Q uit: Not Asked; Counseling Given: Not Answered Alcohol Use Standard Drinks/Week Comments Yes 2 (1 standard drink = 0.6 oz pur e alcohol) social Education Answer Date Recorded Are you interested in more education? Not on albertina e 12/24/2022 Are you concerned about learning? Not on file 12/24/2022 No 12/24/2022 No 12/24/2022 Digital Access Answer Date Recorded No 01/22/2023 No 01/22/2023 Reliable internet access at home? Not on file 01/22/2023 Device with a working camera? Not on file Comments Unknown Sex and Gender Information Value Date Recorded Sex Assigned at Not on file Legal Sex Female 9:38 PM EDT Gender Identity Not on file Sexual Orientation Not on file Last Filed Vital Signs Vital Sign Reading Time Taken Comments Blood Pressure 120/70 06/17/2025 11:45 AM EDT Pulse 91 06/17/2025 11:45 AM EDT Temperature 36.4 C (97.6 F) 09/24/2024 2:08 PM EST Respiratory Rate 12 09/24/2024 2:08 PM EST Oxygen Saturation 97% 06/17/2025 11: 45 AM EDT Inhaled Oxygen Concentration - - Weight 100.8 kg (222 lb 3.2 oz) 025 11:45 AM EDT Height 172.7 cm (5' 7.99 ) 06/17/2025 1 1:45 AM EDT Body Mass Index 33.79 06/17/2025 11:45 AM EDT Plan of Treatment Upcoming Encounters Date Type Department Care Team (Late st Contact Info) Description 08/19/2025 11:00 AM EST Office Visit [facility] [address] [place] [phone] Bing Navarro PA-C [address] [place] [phone] 11/18/2025 11:00 AM EDT Office Visit [facility] [address] [place] [phone] Sindy Verde MD [address] [address] [email or web address] 02/24/2026 11:00 AM EDT Office Visit [facility] [address] [place] [place] [address] Sindy Verde MD [address] [place] [phone] [email or web address] Health Maintenance Due Date Last Done Comments DEPRESSION SCREENING 1980 HIV ONE-TIME SCREENING (18-65 YEARS) 02/16/1986 ZOSTER VACCINES (1 of 2) 02/16/1987 COLOGUARD 02/16/2013 COLONOSCOPY 02/16/2013 COLORECTAL CANCER SCREENING 02/16/2013 FIT TEST 02/16/2013 FOBT 02/16/2013 SIGMOIDOSCOPY 02/16/2013 VIRTUAL COLONOSCOPY 02/16/2013 LUNG CANCER SCREENING (LDCT Only) 02/16/2018 RSV VACCINE (1 - Risk 50-74 years 1-dose series) 02/16/2018 PAP SMEAR 06/22/2022 06/22/2019 DIABETIC EYE EXAM 12/30/2022 PNEUMOCOCCAL VACCINES (50+ years) (2 of 2 - PCV) 06/20/2023 06/20/2022 INFLUENZA VACCINE (#1) 2025 , 07/27/2021, 05/21/2020, Additional history exists COVID-19 VACCINE ( season) 2025 09/06/2021, 10/31/2020, 10/06/2020, Additional history exists SMOKING Hx and SMOKELESS TOBACCO SCREENING 09/24/2025 09/24/2024 BLOOD PRESSURE 12/16/2025 06/17/2025 HEMOGLOBIN A1C 12/26/2025 06/27/2025, 08/30, 05/15/2024, Additional history exists CREATININE LEVEL 06/27/2026 06/27/2025, , 05/15/2024, Additional history exists POTASSIUM LEVEL 06/27/2026 06/27/2025, 08/30, 05/15/2024, Additional history exists TSH LEVEL 06/27/2026 06/27/2025, 08/30, 05/15/2024, Additional history exists MAMMOGRAM 07/09/2027 07/09/2025 Adult Td,Tdap Booster 02/24/2032 02/23/2022, 003 HEPATITIS C SCREENING Completed 02/23/2022 HEPATITIS A VACCINES Aged Out No long er eligible based on patient's age to complete this topic HIB VACCINES Aged Out No longer eligi ble based on patient's age to complete this topic MENINGOCOCCAL VACCINES (ACWY) Aged Out No longer eligible based on patient's age to complete this topic MENINGOCOCCAL VACCINES (B) Aged Out N o longer eligible based on patient's age to complete this topic Medical Devices Not on file Procedures Procedure Name Priority Date/Time Associated Diagnosis Comments FREE T3 Routine 06/27/2025 3:48 PM EDT FREE T4 Routine 06/27/2025 3:48 PM EDT HEMOGLOBIN A1C Routine 06/27/2025 3:48 PM EDT Type 2 diabetes mellitus with peripheral neuropathy ALANINE AMINOTRANSFERASE (ALT) Routine 06/27/2025 3:48 PM EDT Type 2 diabetes mellitus with peripheral neuropathy ASPARTATE AMINOTRANSFERASE (AST) Routine 06/27/2025 3:48 PM EDT Type 2 diabetes mellitus with peripheral neuropathy BASIC METABOLIC PANEL (BMP) Routine 06/27/2025 3:48 PM EDT Type 2 diabetes mellitus with peripheral neuropathy TSH WITH REFLEX Routine 06/27/2025 3:48 PM EDT Postoperative hypothyroidism OUTSIDE HEPATITIS C VIRUS SCREENING Routine 02/23/2022 HM PAP SMEAR FOR RESULT ENTRY ONLY Routine 06/22/2019 from Last 3 Months or Most Recently Relevant to Health Maintenance Results * (ABNORMAL) TSH with reflex (06/27/2025 3:48 PM EDT) TSH 0.11(L) 0.27 - 4.20 uIU/mL [facility] Blood 06/27/2025 3:48 PM EDT 06/27/2025 3:54 PM EDT us Bing POLKC LAB BLOOD BKR ORDE RABLES Final Result [address] [address] * Free T3 (06/27/2025 3:48 PM EDT) FREE T3 2.0 2.0 - 4.4 pg/mL [facility] 06/27/2025 3:48 PM EDT 06/27/2025 3:54 PM EDT us Bing Navarro PA-C LAB BLOOD BKR ORDE RABLINDSEY Final Result Performing Organization Address City/[facility]/ZIP Co de Phone Number [address] [phone] * Alanine aminotransferase (ALT) (06/27/2025 3:48 PM EDT) ALT 29 0 - 40 U/L [facility] Blood 06/27/2025 3:48 PM EDT 06/27/2025 3:54 PM EDT us Bing PRADO-C LAB BLOOD BKR ORDE RABLES Final Result Performing Organization Address City/[facility]/ZIP Co de Phone Number [address] [phone] * Aspartate aminotransferase (AST) (06/27/2025 3:48 PM EDT) AST 17 0 - 37 U/L [facility] Blood 06/27/2025 3:48 PM EDT 06/27/2025 3:54 PM EDT Bing Navarro PA-C LAB BLOOD BKR ORDE CADENCE Final Result Performing Organization Address City/[facility]/ZIP Co de Phone Number [address] [phone] * Free T4 (06/27/2025 3:48 PM EDT) Pathologist [facility] FREE T4 1.3 0.9 - 1.7 ng/dL [facility] 06/27/2025 3:48 PM EDT 06/27/2025 3:54 PM EDT Bing Navarro PA-C LAB BLOOD BKR DIANA GUYLINDSEY Final Result Performing Organization Address [facility]/ZIP Co de Phone Number [address] [address] * (ABNORMAL) Hemoglobin A1c (06/27/2025 3:48 PM EDT) [facility] HEMOGLOBIN A1C 7.0(H) 4.3 - 5.8 % [facility] Blood 06/27/2025 3:48 PM EDT 06/27/2025 3:53 PM EDT Bing Navarro PA-C LAB BLOOD BKR ORDPepe VILA Final Result Performing Organization Address City/[facility]/ZIP Co de Phone Number [address] [address] * (ABNORMAL) Basic metabolic panel (06/27/2025 3:48 PM EDT) Pathologist [facility] SODIUM 136 133 - 146 mmol/L [facility] CHLORIDE 98 96 - 108 mmol/L [facility] POTASSIUM 4.4 3.3 - 5.1 mmol/L [facility] CO2 22 21 - 35 mmol/L [facility] BUN 23(H) 6 - 19 mg/dL [facility] CREATININE 0.80 0.5 - 1.5 mg/dL [facility] GLUCOSE 189(H) 70 - 99 mg/dL [facility] CALCIUM 9.4 8.4 - 10.3 mg/dL [facility] EGFR 86 >59 mL/min/1.7 3m2 [facility] Comment:Estimated glomerular filtration rate calculated using the CKD-EPI refit equation. ANION GAP 20 10 - 20 mmol/L [facility] Blood 06/27/2025 3:48 PM EDT 06/27/2025 3:54 PM EDT Bing Navarro PA-C LAB BLOOD BKR DIANA VILA Final Result [facility] [address] [place] [address] * Outside Hepatitis C Virus Screening (02/23/2022) Hepatitis C Screening - External Neg Historical Provider LAB BLOOD ORDERABLES Dana l Result * PAP SMEAR FOR RESULT ENTRY ONLY (06/22/2019) Pap smear NILM, HPV neg Historical Provider HEALTH MAINTENANCE Final Result from Last 3 Months or Most Recently Relevant to Health Maintenance Insurance [place] [id number] [facility] MEDICARE PART A & B [facility] MEDICARE PART A & B MEDICARE PART A & B MEDICARE PART A & B MEDICARE PART A & B MEDICARE PART A & B MEDICARE PART A & B [facility] MEDICARE PART A & B [facility] Care Teams Counseling Case Manager Relationship Specialty Start Date End Date Castillo Arevalo MD [address] [place] [phone] PCP - General Internal Medicine 12/30/22 Additional Source Comments The information contained in this document represents components of the legal health record. It is not the complete legal health record.[facility]
--- OUTSIDE RECORDS SUMMARY | 2025-08-16 13:03 | XMS_ITS | Clinical Summary ---
Author Organization [facility] [address] [facility] Address [address] [place] [address] Phone Care Team Providers Care Piano Professor Name Role Phone Castillo Arevalo MD Primary Care Provider [phone] Allergies Active Allergy Reactions Criticality Noted Date Comments Amoxicillin Diarrhea Medium 06/02/2017 House Dust Sneezing 10/10/2024 [place] (Viscum Pini - From [place]) Swelling High 02/18/2025 THROAT Mold Stuffy Nose 10/10/2024 Other Other 10/10/2024 Other Reaction(s): pine trees Other Reaction(s): spicy, hot and greasy food - GI upset Pollen Extracts Sneezing 10/10/2024 Medications sulindac (CLINORIL) 200 mg tablet 2 (two) times a day. 01/18/20 24 Active Synthroid 175 mcg tablet Take 1 tablet (175 mcg total) by mouth 1 (one) time each day before breakfast. 11/12/19 21 Active hydrocortisone 2.5 % cream Apply to rash on arms twice daily for 7 days 03/18/20 21 Active gabapentin (NEURONTIN) 300 mg capsule Take 1 capsule (300 mg total) by mouth 3 (three) times a day. 01/24/20 24 Active ascorbic acid (VITAMIN C) 1,000 mg tablet Take 2 tablets (2,000 mg total) by mouth 1 (one) time each day if needed. Active multivitamin (MULTIPLE VITAMINS ORAL) Take by mouth 1 (one) time each day. Active traMADoL (ULTRAM) 50 mg tablet Take 1 tablet (50 mg total) by mouth 3 (three) times a day. Active hydrocortisone 1 % topical cream Apply topically 1 (one) time each day if needed for rash. 30 g 08/14/20 24 Active tirzepatide (MOUNJARO) 7.5 mg/0.5 mL injection Inject 0.5 mL (7.5 mg total) under the skin. 09/24/19 25 Active loratadine (CLARITIN) 10 mg tablet Take 1 tablet (10 mg total) by mouth 2 (two) times a day. Active cholecalciferol (VITAMIN D-3) 25 mcg (1,000 unit) tablet Take 2 tablets (2,000 Units total) by mouth daily. Active acetaminophen (TYLENOL 8 HOUR) 650 mg 8 hr tablet Take 2 tablets (1,300 mg total) by mouth if needed. Active metFORMIN XR (GLUCOPHAGE-XR) 500 mg 24 hr tablet Take 3 tablets (1,500 mg total) by mouth 1 (one) time each day. Active OneTouch Ultra Test test strip 2 (two) times a day. 04/20/20 24 Active OneTouch Ultra2 Meter misc 1 Lancet by extracorporeal route 1 (one) time each day. 09/24/19 25 Active blood-glucose meter kit To test blood glucose daily dx E11.42 09/24/19 25 Active tacrolimus (PROTOPIC) 0.1 % ointment APPLY TOPICALLY TO THE AFFECTED AREA TWICE DAILY NEEDED 10/10/19 25 Active famotidine (Pepcid) 20 mg tabletIndicatio ns:Gastroesopha geal reflux disease without esophagitis Take 1 tablet (20 mg total) by mouth if needed for heartburn or indigestion. 60 each 11/10/19 25 026 Active colestipoL (COLESTID) 1 gram tabletIndicatio ns:Functional diarrhea Take 1 tablet (1 g total) by mouth 2 (two) times a day if needed (diarrhea). 60 each 11/10/19 25 026 Active cetirizine (ZyrTEC) 10 mg tablet Take 1 tablet (10 mg total) by mouth 1 (one) time each day. 01/02/20 25 Active lancets (MOBi-LEARNTouch Delica Plus Lancet) [address] 1 each on the skin 2 times daily. 07/26/20 23 Active omeprazole (PriLOSEC) [address] capsuleIndicati ons:Gastroesoph ageal reflux disease without esophagitis TAKE 1 CAPSULE(40 MG) BY MOUTH TWICE DAILY. DO NOT CRUSH OR CHEW 60 capsule 6 02/27/20 25 Active ondansetron (ZOFRAN) 4 mg tabletIndicatio ns:Nausea and vomiting, unspecified vomiting type Take 1 tablet (4 mg total) by mouth 1 (one) time each day. 30 tablet 03/26/20 026 Active amitriptyline (ELAVIL) 10 mg tabletIndicatio ns:Nausea and vomiting, unspecified vomiting type,Functional diarrhea Take 1 tablet (10 mg total) by mouth at bedtime. at bedtime 30 tablet 04/17/20 Active Additional Information Patient taking differently:10 mg oral Nightly,(No instructions reported), Reported on 06/25/2025 atorvastatin (LIPITOR) 80 mg tablet TAKE 1 TABLET BY MOUTH DAILY 90 tablet 1 05/27/20 25 Active tiZANidine (ZANAFLEX) 4 mg tablet Take 1 tablet (4 mg total) by mouth 1 (one) time each day if needed for muscle spasms. 05/02/20 25 Active LORazepam (ATIVAN) 0.5 mg tablet Take 1 tablet (0.5 mg total) by mouth 1 (one) time each day if needed for anxiety for up to 28 days. Max Daily Amount: 0.5 mg 20 tablet 06/04/20 Active losartan (COZAAR) 50 mg tablet Take 1 tablet (50 mg total) by mouth 1 (one) time each day. 90 tablet 1 07/02/20 25 Active Active Problems Problem Noted Date Diagnosed Date [...] Overview (05/31/2024): Last Assessment & Plan: Ms. Garay describes diffuse neck pain without specific radiation to the arms, clumsiness or weakness. We reviewed her cervical spine MRI which has some mild findings but nothing that would warrant surgical intervention. We discussed physical therapy traction, posture correction, and avoiding heavy lifting. Assessment & Plan (01/08/2025 2:34 PM EDT): I reviewed the imaging findings in detail with Ms. Garay. She does have degenerative changes worse at [...] using it while on the oxycodone. Ms. Garay is doing well postop, can follow-up as [...] 04/23/2022 Overview (02/28/2025): Dx 2021, ophtho - [facility]; foot exam December 2022 DUB (dysfunctional [...] 2 (two) times a day. Fibromyalgia 10/25/2011 Encounters Date Type Department Care Team Description 07/09/2025 Results Follow-Up Internal Medicine - [address] [phone] Castillo Arevalo MD 06/28/2025 Results Follow-Up Internal Medicine - [address] [phone] Aby Meade [place] 06/25/2025 10:07 AM EDT Anesthesia Event [facility] [address] [place] [address] Cesar Contreras MD 06/25/2025 10:05 AM EDT - 06/25/2025 11:59 PM EDT Hospital Encounter [facility] Xray [address] [place] [address] Pain Discharge Disposition: Home or Self Care 06/25/2025 8:45 AM EDT - 06/25/2025 11:59 PM EDT Hospital Encounter [facility] [address] [place] [address] Jose Flores DO Chang, Ling, JASON Radiculopathy, cervical region Discharge Disposition: Home or Self Care 06/04/2025 11:15 AM EDT Office Visit Internal Medicine - [address] [phone] Castillo Arevalo MD Encounter for long-term current use of medication (Primary Dx); Mast cell activation syndrome (CMS/HCC V24); Type 2 diabetes mellitus with peripheral neuropathy (CMS/HCC V24, CMS/HCC V28); 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; Primary hypertension; Fibromyalgia; Hypercholesterolemi a; Anxiety; Immunization due 05/31/2025 Results Follow-Up Internal Medicine - [facility] [address] [place] [address] Kayla Paula MA from Last 3 Months Immunizations Immunization Administration Dates Next Due Influenza Quadravalent, MDCK , 0.5ml, preservative free (Flucelvax) 6mo and older 07/27/2021,05/31/2019 Influenza trivalent, 0.5mL ( Fluzone High-dose) 65yo and older 06/25/2016 Influenza trivalent, 0.5mL, preservative free (Fluarix; FluLaval; Fluzone) ages 6mo and older (Afluria) 3 years and older 05/04/2017,06/05/2015,07/12/2013,06/14 Influenza trivalent, MDCK, 0 .5mL, preservative free (Flucelvax) 6mo and older 06/04/2025 Influenza trivalent, with pr eservative (Fluzone; Afluria) 6mo and older 05/21/2020,04/25/2018,04/28/2012,06/14 Influenza, live, intranasal, quadrivalent (FluMist) 2yo to less than 50yo 06/20/2022 Moderna SARS-CoV-2 COVID-19, mRNA, LNP-S, preservative free 10/31/2020,10/03/2020 Pfizer SARS-CoV-2 COVID-19, mRNA, LNP-S, preservative free 09/06/2021 Pneumococcal polysaccharide 23 valent (Pneumovax 23) 2yo and older 06/20/2022 Td Tetanus diptheria (Tdvax) 7yo and older 11/20/2002 Tdap Tetanus diptheria acell ular pertussis (Boostrix; Adacel) 7yo and older 02/23/2022 Surgical History Surgery Date Site/Laterality Comments TOTAL KNEE ARTHROPLASTY 11/01/2019 Left PROCEDURE: HISTORICAL TOTAL KNEE REPLACE; COMMENT: Dr. Khan OTHER SURGICAL HISTORY 2019 PROCEDURE: [place] HYSTEROSCOPY ENDOMETRIAL ABLATION ANKLE FRACTURE SURGERY Left PROCEDURE: [place] OPEN TREATMENT MEDIAL MALLEOLUS FRACTURE MULTIPLE TOOTH EXTRACTIONS PROCEDURE: HISTORICAL DENTAL EXTRACTION; COMMENT: now with dental implants COLONOSCOPY 12/25/2020 PROCEDURE: HISTORICAL COLONOSCOPY; COMMENT: Hemorrhoids, 1 small polyp, diverticulosis, follow-up 5 years; Dr. Lizama ESOPHAGOGASTRODUODENOSCOPY 12/25/2020 PROCEDURE: [place] ESOPHAGOGASTRODUODENOSCOPY TRANSORAL DIAGNOSTIC; COMMENT: Normal study, Dr. Yanes, biopsies taken BACK SURGERY 09/01/2023 PROCEDURE: HISTORICAL BACK SURGERY; COMMENT: L4-5 decompression, Dr. Shetty SPINE SURGERY 08/29/2021 - 08/28/2022 HYSTERECTOMY COLONOSCOPY 10/18/2024 negative random biopsies ESOPHAGOGASTRODUODENOSCOPY 10/18/2024 negative celiac/h.pylori OTHER SURGICAL HISTORY 03/29/2024 - 04/28/2024 negative gastric emptying study BLADDER SUSPENSION KNEE ARTHROSCOPY Bilateral Medical History Medical History Date Comments Hypertension 01/01/2020 DX:Hypertension Hypercholesterolemia 02/08/2017 DX:Hypercho lesterolemia Hypothyroidism 04/25/2018 DX:Hypothyroidis m; COMMENT: Dr. Verde Type 2 diabetes mellitus wit hout complication, without long-term current use of insulin (CMS/HCC V24, CMS/HCC V28) 04/23/2022 DX:Type 2 diabet es mellitus without complication, without long-term current use of insulin ([facility]) Esophageal reflux 07/12/2013 DX:Esophageal reflux Thyroid neoplasm malignant ( CMS/HCC V24, CMS/HCC V28) 07/19/2016 DX:Thyroid neoplasm malignan t (HCC); COMMENT: Follows with endocrinology, Dr. Verde Fibromyalgia 10/25/2011 DX:Fibromyalgia Fractures Joint pain Arthritis Family History Medical History Relation Name Comments Breast cancer Aunt Breast cancer Brother no further dakota atment beyond lumpectomy Coronary artery disease Father Diabetes Father Hypertension Father Rheum arthritis Father Breast cancer Mother inflammatory Relation Name Status Comments Aunt Brother Alive Father Alive Mother Alive Social History Tobacco Use Types Packs/Day Years Used Date Smoking Tobacco: Some Days Cigars Smokeless Tobacco: Never Tobacco Cessation:Ready to Q uit: Not Asked; Counseling Given: Not Answered Alcohol Use Standard Drinks/Week Comments Yes 0 (1 standard drink = 0.6 oz pur e alcohol) occasionally Interpersonal Safety Answer Date Record ed Physical Abuse Unrecognized value 06/25/2025 Verbal Abuse Unrecognized value 06/25/2025 Comments No Sex and Gender Information Value Date Recorded Sex Assigned at Female 07/24/2024 9:30 AM EST Legal Sex Female 2:03 AM EST Gender Identity Female 07/24/2024 9:30 AM EST Sexual Orientation Straight 07/24/2024 9: 30 AM EST Last Filed Vital Signs Vital Sign Reading Time Taken Comments Blood Pressure 136/85 06/25/2025 10:45 AM EDT Pulse 80 06/25/2025 10:45 AM EDT Temperature 36.1 C (96.9 F) 06/25/2025 9:01 AM EDT Respiratory Rate 16 06/25/2025 10:45 AM EDT Oxygen Saturation 100% 06/25/2025 10:45 AM EDT Inhaled Oxygen Concentration - - Weight 104 kg (230 lb) 06/25/2025 9:16 AM EDT Height 172.7 cm (5' 8 ) 06/25/2025 9:16 AM EDT Body Mass Index 34.97 06/25/2025 9:16 AM EDT Plan of Treatment Upcoming Encounters Date Type Department Care Team (Late st Contact Info) Description 12/03/2025 9:00 AM EDT [facility] [address] [place] [phone] Castillo Arevalo MD [address] [place] [id number] Health Maintenance Due Date Last Done Comments Diabetes: Annual Foot Exam 02/16/1978 Hepatitis B Vaccines (1 of 3 - 19+ 3-dose series) 02/16/1987 RSV Immunization Adult Patients (1 - Risk 50-74 years 1-dose series) 02/16/2018 HIV Screening 08/01/2022 Lung Cancer Screening (Low Dose CT) 08/01/2022 Pneumococcal Vaccine: 50+ Years (2 of 2 - PCV) 06/20/2023 06/20/2022 Depression Screening 08/29/2024 10/26/2023 Diabetes: Annual Urine Albumin-Creatinine Ratio (uACR) 10/25/2024 10/25/2023, 12/10/2022 Medicare Annual Wellness Visit 10/26/2024 10/26/2023 Diabetes: Blood Sugar Control Test (HGBA1C) 03/24/2025 09/24/2024, 10/25/2023 Diabetes: Annual Retina Eye Exam 10/22/2025 10/22/2024 Social Influencers of Health Screening 10/31/2025 10/31/2024 Cervical Cancer Screening: Pap Smear 12/10/2025 12/10/2022 Diabetes: Annual GFR (Glomerular Filtration Rate) 05/22/2026 05/22/2025, 04/25/2024, 04/25/2024 Hypertension/CHF/CAD Annual BMP Blood Test 05/22/2026 05/22/2025, 04/25/2024, 04/25/2024 Breast Cancer Screening 07/09/2027 07/09/20, 05/28/2024, 05/23/2024 Colorectal Cancer Screening: Colonoscopy 10/18/2029 10/18/2024, 12/25/2020, 12/25/2020 Cholesterol Screening (Lipid Panel) 05/22/2030 05/22/2025, 04/25/2024, 04/25/2024 DTaP,Tdap,and Td Vaccines (3 - Td or Tdap) 02/24/2032 02/23/2022, 11/20/2002 Osteoporosis Screening (Bone Density Screening) 05/24/2034 05/24/2024, 05/23/2024 Hepatitis C Screening Completed 02/23/2022, 022 COVID-19 Vaccine Discontinued 06/21/2022, 04/2022, 10/31/2020, Additional history exists Zoster Vaccines Completed 10/05/2022, 07/19/2022 Influenza Vaccine Discontinued 06/04/2025, , 06/20/2022, Additional history exists HIB Vaccines Aged Out No longer eligi ble based on patient's age to complete this topic HPV Vaccines Aged Out No longer eligi ble based on patient's age to complete this topic Hepatitis A Vaccines Aged Out No long er eligible based on patient's age to complete this topic IPV Vaccines Aged Out No longer eligi ble based on patient's age to complete this topic MMR Vaccines Aged Out No longer eligi ble based on patient's age to complete this topic Meningococcal ACWY Vaccine Aged Out N o longer eligible based on patient's age to complete this topic Meningococcal B Vaccine Aged Out No l onger eligible based on patient's age to complete this topic RSV Immunization Patients Under 20 months Aged Out No longer eligible based on patient's age to complete this topic Varicella Vaccines Aged Out No longer eligible based on patient's age to complete this topic Medical Devices Implanted Type Area Grocery Buyer Device Identifier Shelf Expiration Date Model / Serial / Lot Dental Implants Dental Implants N/A: Mouth Joints Knee Joints Knee Left: Knee Procedures Procedure Name Priority Date/Time Associated Diagnosis Comments EXTERNAL MAMMOGRAM REPORT 07/09/2025 EXTERNAL CLINICAL LAB 06/27/2025 EXTERNAL CLINICAL LAB 06/27/2025 EXTERNAL CLINICAL LAB 06/27/2025 OXYGEN THERAPY, ADULT Routine 06/25/2025 10:31 AM EDT OXYGEN THERAPY, ADULT Routine 06/25/2025 10:31 AM EDT POCT GLUCOSE BLOOD Routine 06/25/2025 9: 02 AM EDT DRUG ABUSE SCREEN 8A PANEL, URINE Routine 06/04/2025 11:56 AM EDT Encounter for long-term current use of medication CBC WITH AUTO DIFFERENTIAL Routine 05/22/2025 12:34 PM EDT Hypergammaglobuline jadyn GLIADIN ANTIBODIES, SERUM Routine 05/22/2025 12:34 PM EDT Hypergammaglobuline jadyn ENDOMYSIAL ANTIBODY, IGA Routine 05/22/2025 12:34 PM EDT Hypergammaglobuline jadyn TISSUE TRANSGLUTAMINASE, IGA Routine 05/22/2025 12:34 PM EDT Hypergammaglobuline jadyn LIPID PANEL WITH REFLEX TO DIRECT LDL Routine 05/22/2025 12:34 PM EDT Hypercholesterolemi a STREPTOCOCCUS PNEUMONIAE ANTIBODIES, IGG, 23 SEROTYPES Routine 05/22/2025 12:34 PM EDT Hypergammaglobuline jadyn C1Q BINDING ASSAY Routine 05/22/2025 12: 34 PM EDT Hypergammaglobuline jadyn C4 COMPLEMENT Routine 05/22/2025 12:34 PM EDT Hypergammaglobuline jadyn C1 ESTERASE INHIBITOR, FUNCTIONAL Routine 05/22/2025 12:34 PM EDT Hypergammaglobuline jadyn C1 ESTERASE INHIBITOR, PROTEIN Routine 05/22/2025 12:34 PM EDT Hypergammaglobuline jadyn CBC AND DIFFERENTIAL Routine 05/22/2025 12:34 PM EDT Hypergammaglobuline jadyn IMMUNOGLOBULIN IGA Routine 05/22/2025 12 :34 PM EDT Hypergammaglobuline jadyn COMPREHENSIVE METABOLIC PANEL Routine 05/22/2025 12:34 PM EDT Hypergammaglobuline jadyn C-REACTIVE PROTEIN Routine 05/22/2025 12 :34 PM EDT Hypergammaglobuline jadyn IMMUNOGLOBULIN IGE Routine 05/22/2025 12 :34 PM EDT Hypergammaglobuline jadyn IMMUNOGLOBULINS IGG, IGA, IGM Routine 05/22/2025 12:34 PM EDT Hypergammaglobuline jadyn TRYPTASE Routine 05/22/2025 12:34 PM EDT Hypergammaglobuline jadyn EHRLICHIA CHAFFEENSIS ANTIBODIES, IGG AND IGM Routine 05/22/2025 12:34 PM EDT Hypergammaglobuline jadyn ANAPLASMA PHAGOCYTOPHILUM ANTIBODIES, IGG AND IGM Routine 05/22/2025 12:34 PM EDT Hypergammaglobuline jadyn BABESIA MICROTI ANTIBODIES, IGG AND IGM Routine 05/22/2025 12:34 PM EDT Hypergammaglobuline jadyn BORRELIA BURGDORFERI ANTIBODY Routine 05/22/2025 12:34 PM EDT Hypergammaglobuline jadyn COLONOSCOPY Routine 10/18/2024 8:26 AM EST Personal history of hyperplastic colon polyps GERD (gastroesophageal reflux disease) [facility] DEXA AXIAL SKELETON Routine 05/24/20 4:58 PM EDT Age-related osteoporosis without current pathological fracture DEPRESSION SCREENING Routine 10/26/2023 HEMOGLOBIN A1C Routine 10/25/2023 URINE ALBUMIN CREATININE RATIO Routine 12/10/2022 PAP SMEAR Routine 12/10/2022 HEPATITIS C SCREENING Routine 02/23/2022 from Last 3 Months or Most Recently Relevant to Health Maintenance Results * External Mammogram Report (07/09/2025) Anatomical Region Laterality Modality Mammography Provider [facility] IMG BI PROCEDURES Final Result * External clinical lab (06/27/2025) Only the most recent of3 resultswithin the time period is included. Provider [facility] LAB BLOOD ORDERABLES Fin al Result * (ABNORMAL) POCT Glucose, blood (06/25/2025 9:02 AM EDT) Glucose POCT 152(H) 70 - 100 mg/dL 06/25/2025 9:03 AM EDT [facility] Blood Capillary blood specimen / Unknown 06/25/2025 9:02 AM EDT 06/25/2025 9:04 AM EDT Ila Contreras CRNA LAB POINT OF CARE TE ST DOCKED DEVICE UNSOLICITED RESULTS Final Result [facility] [address] [place] [address], * Drug abuse screen 8a panel, urine (06/04/2025 11:56 AM EDT) [facility] Amphetamine Screen, Ur Negative Negative LAB CHEMISTRY METHOD 06/04/2025 4:20 PM EDT [facility] Comment:Certain OTC medicati ons containing ephedrine, phenylephrine, pseudoephedrine and phenylpropanolamine can cause false positive results. Barbiturate Screen, Ur Negative Negative LAB CHEMISTRY METHOD 06/04/2025 4:20 PM EDT [facility] Benzodiazepine Screen, Ur Negative Negative LAB [facility]STR[facility] Cocaine Screen, Ur Negative Negative LAB CHEMISTRY METHOD 06/04/2025 4:[address] [facility] Opiate Screen, Ur Negative Negative LAB CHEMISTRY METHOD 06/04/2025 4:[address] [facility] Cannabinoid (THC) Screen, Ur Negative Negative LAB CHEMISTRY METHOD 06/04/2025 4:[address] [facility] Comment:Specimens from patie nts taking pantoprazole sodium (Protonix) have been shown to produce false positive results. Oxycodone Screen, Ur Negative Negative LAB CHEMISTRY METHOD 06/04/2025 4:[address] [facility] Fentanyl, Ur Negative Negative LAB CHEMISTRY METHOD 06/04/2025 4:[address] [facility] Urine Urine specimen obtained by clean catch procedure / Unknown Non-blood Collection / Unknown 06/04/2025 11:56 AM EDT 06/04/2025 11:[address] [facility] - 06/04/2025 4:20 PM EDT Assay cutoffs: Amphetamines 1000 ng/mL Barbiturates 200 ng/mL Benzodiazepines 200 ng/mL Cocaine 300 ng/mL Fentanyl 1 ng/mL Opiates 300 ng/mL Oxycodone 100 ng/mL THC 50 ng/mL Semi-quantitative assay for screening purposes only. Unconfirmed screening result should not be used for non-medical purposes. *ALTERNATE METHOD CONFIRMATION DONE UPON REQUEST ONLY* Castillo Arevalo MD LAB URINE ORDERABLES Final Resu lt Performing Organization Address City/[facility]/ZIP Co de Phone Number [facility] [address] [place] [address], [place] [phone] * (ABNORMAL) Lipid panel with reflex to direct LDL (05/22/2025 12:34 PM EDT) Cholesterol 165 0 - 200 mg/dL LAB CHEMISTRY METHOD 05/22/2025 5:54 PM EDT [facility] Triglycerides 195(H) 0 - 150 mg/dL LAB CHEMISTRY METHOD 05/22/2025 5:54 PM EDT [facility] HDL 51 >=40 mg/dL LAB CHEMISTRY METHOD 05/22/2025 5:54 PM EDT [facility] LDL Calculated 75 0 - 100 mg/dL LAB CHEMISTRY METHOD 05/22/2025 5:54 PM EDT [facility] Comment:Estimated LDL Calcul ated using equation: Total cholesterol - HDL cholesterol - (Triglycerides/5) VLDL Cholesterol Saad 39 mg/dL LAB CHEMISTRY METHOD 05/22/2025 5:54 PM EDT [facility] Non HDL Chol. (LDL+VLDL) 114 <145 mg/dL LAB CHEMISTRY METHOD 05/22/2025 5:54 PM EDT [facility] Chol/HDL Ratio 3.2 0.0 - 4.4 LAB CHEMISTRY METHOD 05/22/2025 5:54 PM EDT [facility] Blood Venous blood specimen / Unknown Venipuncture / Unknown 05/22/2025 12:34 PM EDT 05/22/2025 12:34 PM EDT Castillo Arevalo MD LAB BLOOD ORDERABLES Final Resu lt [facility] [address] [place] [address], * Streptococcus pneumoniae antibodies, IgG, 23 serotypes (05/22/2025 12:34 PM EDT) [facility] Serotype 1 (1) 0.6 >=1.0 mcg/mL 05/28/2025 9:39 AM EDT [facility] Serotype 2 (2) 0.8 >=1.0 mcg/mL 05/28/2025 9:39 AM EDT [facility] Serotype 3 (3) 0.2 >=1.0 mcg/mL 05/28/2025 9:39 AM EDT [facility] Serotype 4 (4) 0.3 >=1.0 mcg/mL 05/28/2025 9:39 AM EDT [facility] Serotype 5 (5) 0.3 >=1.0 mcg/mL 05/28/2025 9:39 AM EDT [facility] Serotype 8 (8) 1.0 >=1.0 mcg/mL 05/28/2025 9:39 AM EDT [facility] Serotype 9 (9N) 0.5 >=1.0 mcg/mL 05/28/2025 9:39 AM EDT [facility] Serotype 12F (12) 0.9 >=1.0 mcg/mL 05/28/2025 9:39 AM EDT [facility] Serotype 14 (14) 1.3 >=1.0 mcg/mL 05/28/2025 9:39 AM EDT [facility] Serotype 17 (17F) 2.9 >=1.0 mcg/mL 05/28/2025 9:39 AM EDT [facility] Serotype 19 (19F) 2.6 >=1.0 mcg/mL 05/28/2025 9:39 AM EDT [facility] Serotype 20 (20) 4.6 >=1.0 mcg/mL 05/28/2025 9:39 AM EDT [facility] Serotype 22F (22) 1.5 >=1.0 mcg/mL 05/28/2025 9:39 AM EDT [facility] Serotype 23 (23F) 0.8 >=1.0 mcg/mL 05/28/2025 9:39 AM EDT [facility] Serotype 6B 0.7 >=1.0 mcg/mL 05/28/2025 9:39 AM EDT [facility] Serotype 10A 1.2 >=1.0 mcg/mL 05/28/2025 9:39 AM EDT [facility] Serotype 11A 0.6 >=1.0 mcg/mL 05/28/2025 9:39 AM EDT [facility] Serotype 7F 1.4 >=1.0 mcg/mL 05/28/2025 9:39 AM EDT [facility] Serotype 15B 4.6 >=1.0 mcg/mL 05/28/2025 9:39 AM EDT [facility] Serotype 18C 1.0 >=1.0 mcg/mL 05/28/2025 9:39 AM EDT [facility] Serotype 19A 3.8 >=1.0 mcg/mL 05/28/2025 9:39 AM EDT [facility] Serotype 9V 0.4 >=1.0 mcg/mL 05/28/2025 9:39 AM EDT [facility] Serotype 33F 2.7 >=1.0 mcg/mL 05/28/2025 9:39 AM EDT [facility] Interpretation SEE BELOW 05/28/2025 9:39 AM EDT [facility] Comment: Evaluation of the immune response following pneumococcal vaccination can be assessed by measuring serotype-specific Streptococcus pneumonia IgG antibodies. Either of the following conditions is consistent with a normal response to Streptococcus pneumonia vaccination: 1. When comparing pre and post-vaccination samples, antibody concentrations increased by at least 2-fold for either >50% of serotypes in children <6 years of age or >70% of serotypes for individuals >6 years of age. 2. In either a pre- or post-vaccination sample, antibody concentrations >=1.0 mcg/mL for either >50% of serotypes for children <6 years of age or >70% of serotypes for individuals >6 years of age. Results >=1.0 mcg/mL or those showing a >=2-fold change are consistent with an immune response, but are not necessarily sufficient to provide protection against infection. ADDITIONAL INFORMATION This test was developed and its performance characteristics determined by [facility] in a manner consistent with CLIA requirements. This test has not been cleared or approved by the U.S. Food and Drug Administration. Test Performed by: [facility] [address] [place] [address] Steward/Stewardess Third Class: Bhargavi Pacheco Ph.D.; CLIA# [id number] Blood Venous blood specimen / Unknown Venipuncture / Unknown 05/22/2025 12:34 PM EDT 05/22/2025 12:34 PM EDT Chiki PRADO LAB BLOOD ORDERABLES Fin al Result [facility] [address] [place] [address] * Endomysial antibody, IgA (05/22/2025 12:34 PM EDT) Pathologist [facility] Endomysial IgA Negative Negative 05/24/2025 11:37 AM EDT [facility] Blood Venous blood specimen / Unknown Venipuncture / Unknown 05/22/2025 12:34 PM EDT 05/22/2025 12:34 PM EDT [facility] LAB BLOOD ORDERABLES Fin al Result Performing Organization Address City/[facility]/ZIP Co de Phone Number [facility] [address] [place] [address], [place] [phone] * C1Q binding assay (05/22/2025 12:34 PM EDT) C1Q Binding Assay 1.1 0.0 - 3.9 ug Eq/mL 05/30/2025 8:49 PM EDT [facility] Comment: INTERPRETIVE INFORMATION: Circulating Immune Complex, C1q Binding Less than or equal to 3.9 ug Eq/mL is considered negative for circulating complement binding immune complexes. Circulating immune complexes may be found without any evident pathology and positive results do not necessarily implicate the immune complex in a disease process. Performed By: [facility] [address] [place] [address] [place] [address] Log Chain Worker: Mauricio Padilla MD, PhD CLIA Number: [id number] Blood Venous blood specimen / Unknown Venipuncture / Unknown 05/22/2025 12:34 PM EDT 05/22/2025 12:34 PM EDT [facility] LAB BLOOD ORDERABLES Fin al Result [facility] [address] [place] [address] * Babesia microti antibodies, IGG and IGM (05/22/2025 12:34 PM EDT) [facility] Babesia microti IgG Antibodies <1:64 05/27/2025 10:37 PM EDT [facility] Babesia microti IgM Antibodies <1:20 05/27/2025 10:37 PM EDT [facility] Babesia microti Interpretation SEE NOTE 05/27/2025 10:37 PM EDT [facility] Comment: ANTIBODY NOT DETECTED REFERENCE RANGES: IgG <1:64 IgM <1:20 Elevated antibody levels to B. microti indicate exposure to the organism. Human babesiosis infection is transmitted by the bite of an infected Ixodes tick or less frequently from transfusion with blood from an infected donor. Definitive diagnosis is made by identifying intraerythrocytic organisms in peripheral blood. In patients with low parasitemia, antibody detection by IFA is recommended. IgG levels greater than or equal to 1:1024 can be detected in acute phase patients with parasites in blood smears. The IFA assay can be used as a seroepidemiologic tool to study the frequency and distribution of B. microti in endemic areas especially in persons with mixed infections also involving Borrelia burgdorferi. This test was developed and its analytical performance characteristics have been determined by [facility]. It has not been cleared or approved by FDA. This assay has been validated pursuant to the CLIA regulations and is used for clinical purposes. Test Performed at: [facility] [address] [address] Erasmo Hinton MD, PhD Blood Venous blood specimen / Unknown Venipuncture / Unknown 05/22/2025 12:34 PM EDT 05/22/2025 12:34 PM EDT [facility] BLOOD ORDERABLES Fin al Result [facility] [address] [place] [address] * Anaplasma phagocytophilum antibodies, IGG and IGM (05/22/2025 12:34 PM EDT) Anaplasma phagocytophilum IgG Ab <1:64 <1:64 05/29/2025 7:00 PM EDT [facility] Anaplasma phagocytophilum IgM Ab <1:20 <1:20 05/29/2025 7:00 PM EDT [facility] Anaplasma phagocytophilum Interpretation SEE BELOW 05/29/2025 7:00 PM EDT [facility] Comment:Antibody Not Detecte d Comment SEE BELOW 05/29/2025 7:00 PM EDT [facility] Comment: Anaplasma phagocytophilum is the tick-borne agent causing Human Granulocytic Ehrlichiosis (HGE). HGE is distinct and separate from Human Monocytic Ehrlichiosis (HME), caused by Ehrlichia chaffeensis. Serologic crossreactivity between A. phagocyto- philum and E. chaffeensis is minimal (5-15%). This test was developed and its analytical performance characteristics have been determined by [facility] [place]. It has not been cleared or approved by the U.S. Food and Drug Administration. This assay has been validated pursuant to the CLIA regulations and is used for clinical purposes. Test Performed by [facility], [facility] [place], [address] [place], [place] Ernesto Domínguez M.D., Ph.D., Director of Laboratories , CLIA [id number] Blood Venous blood specimen / Unknown Venipuncture / Unknown 05/22/2025 12:34 PM EDT 05/22/2025 12:34 PM EDT us [facility] LAB BLOOD ORDERABLES Fin al Result [facility] [place] [address] * (ABNORMAL) CBC auto differential (05/22/2025 12:34 PM EDT) [facility] Signature WBC 8.2 4.8 - 10.8 K/mcL LAB HEMETOLOGY METHOD 05/22/2025 1:50 PM EDT [facility] RBC 5.00(H) 3.80 - 4.80 M/mcL LAB HEMETOLOGY METHOD 05/22/2025 1:50 PM EDT [facility] Hemoglobin 14.3 11.5 - 16.0 g/dL LAB HEMETOLOGY METHOD 05/22/2025 1:50 PM EDT [facility] Hematocrit 44.5 35.0 - 47.0 % LAB HEMETOLOGY METHOD 05/22/2025 1:50 PM EDT [facility] MCV 89.7 79.0 - 98.0 FL LAB HEMETOLOGY METHOD 05/22/2025 1:50 PM EDT [facility] MCH 28.8 27.0 - 32.0 pcg LAB HEMETOLOGY METHOD 05/22/2025 1:50 PM EDT [facility] MCHC 32.1 32.0 - 37.0 g/dL LAB HEMETOLOGY METHOD 05/22/2025 1:50 PM EDT [facility] RDW 14.6 11.0 - 15.0 % LAB HEMETOLOGY METHOD 05/22/2025 1:50 PM EDT [facility] Platelets 198 130 - 400 K/mcL LAB HEMETOLOGY METHOD 05/22/2025 1:50 PM EDT [facility] MPV 11.4(H) 7.0 - 11.0 FL LAB HEMETOLOGY METHOD 05/22/2025 1:50 PM EDT [facility] NRBC 0.0 <1.0 % LAB HEMETOLOGY METHOD 05/22/2025 1:50 PM EDT [facility] NRBC Absolute 0.00 <0.10 K/mcL LAB HEMETOLOGY METHOD 05/22/2025 1:50 PM EDT [facility] Neutrophils Relative 52.5 % LAB HEMETOLOGY METHOD 05/22/2025 1:50 PM EDT [facility] Lymphocytes Relative 40.4 % LAB HEMETOLOGY METHOD 05/22/2025 1:50 PM EDT [facility] Monocytes Relative 5.0 % LAB [facility]OLOGY [facility] Eosinophils Relative 1.7 % LAB HEMETOLOGY METHOD 05/22/2025 1:50 PM EDT [facility] Basophils Relative 0.2 % LAB HEMETOLOGY METHOD [facility]/22[facility]2025 [facility] Immature Granulocytes Relative 0.2 % LAB HEMETOLOGY METHOD 05/22/2025 1:[facility] Neutrophils Absolute 4.32 1.50 - 7.00 K/mcL LAB HEMETOLOGY METHOD 05/22/2025 1:[facility] Lymphocytes Absolute 3.33 1.00 - 5.00 K/mcL LAB HEMETOLOGY METHOD 05/22/2025 1:50 PM EDT [facility] Monocytes Absolute 0.41 0.20 - 1.00 K/mcL LAB HEMETOLOGY METHOD 05/22/2025 1:50 PM EDT [facility] Eosinophils Absolute 0.14 0.00 - 0.50 K/mcL LAB HEMETOLOGY METHOD 05/22/2025 1:50 PM EDT [facility] Basophils Absolute 0.02 0.00 - 0.20 K/mcL LAB HEMETOLOGY METHOD 05/22/2025 1:50 PM EDT [facility] Immature Granulocytes Absolute 0.02 0.00 - 0.03 K/mcL LAB HEMETOLOGY METHOD 05/22/2025 1:50 PM EDT [facility] Blood Venous blood specimen / Unknown Venipuncture / Unknown 05/22/2025 12:34 PM EDT 05/22/2025 12:34 PM EDT [facility] LAB BLOOD ORDERABLES Fin al Result [facility] [address] [place] [address], [place] [phone] * C1 esterase inhibitor, protein (05/22/2025 12:34 PM EDT) C1 Esterase Inhibitor, Protein 33 21 - 39 mg/dL 05/27/2025 7:07 AM EDT [facility] Comment: A normal C1 esterase inhibitor protein level does not rule out the possibility of a functional C1 esterase inhibitor deficiency. Consider further testing of C1 esterase inhibitor functional activity, if clinically indicated. Test Performed by Trish Meek, [facility] [place], [address] [place] [address] Ernesto Domínguez M.D., Ph.D., Director of Laboratories , [facility] [id number] Blood Venous blood specimen / Unknown Venipuncture / Unknown 05/22/2025 12:34 PM EDT 05/22/2025 12:34 PM EDT [facility] BLOOD ORDERABLES Fin al Result [facility] [address] [place] [address] * Tryptase (05/22/2025 12:34 PM EDT) Tryptase 5 <11 ug/L 05/27/2025 12:52 PM EDT [facility] Comment: Test performed at [facility], [address], [place] [address] Suze Munoz MD, PhD - Head Strength And Conditioning Coach Blood Venous blood specimen / Unknown Venipuncture / Unknown 05/22/2025 12:34 PM EDT 05/22/2025 12:34 PM EDT [facility] BLOOD ORDERABLES [facility] al Result [facility] [address] [place] [address] * Ehrlichia chaffeensis antibodies, IgG and IgM (05/22/2025 12:34 PM EDT) Ehrlichia chaffeensis Ab IgG <1:64 <1:64 05/29/2025 7:00 PM EDT [facility] Ehrlichia chaffeensis Ab IgM <1:20 <1:20 05/29/2025 7:00 PM EDT [facility] Interpretation SEE BELOW 05/29/2025 7:00 PM EDT [facility] Comment:Antibody Not Detecte d Comment SEE BELOW 05/29/2025 7:00 PM EDT [facility] Comment: Ehrlichia chaffeenis has been identified as the causative agent of Human Monocytic Ehrlichiosis (HME). Infected individuals produce specific antibodies to E. chaffeensis that can be detected by an immuno- fluorescent antibody (IFA) test. Single IgG IFA titers of 1:64 or greater indicate exposure to E. chaffeensis. A four-fold rise in IgG titers between acute and convalescent samples and/or the presence of IgM antibody against E. chaffeensis suggest recent or current infection. This test was developed and its analytical performance characteristics have been determined by [facility] [place]. It has not been cleared or approved by the U.S. Food and Drug Administration. This assay has been validated pursuant to the CLIA regulations and is used for clinical purposes. Test Performed by Trish Meek, [facility], [address] [place], [place] Ernesto Domínguez M.D., Ph.D., Director of Laboratories , [facility] [id number] Blood Venous blood specimen / Unknown Venipuncture / Unknown 05/22/2025 12:34 PM EDT 05/22/2025 12:34 PM EDT [facility] BLOOD ORDERABLES Fin al Result Performing Organization Address City/[facility] [[email or web address]] Co de Phone Number [facility] [address] [place] [address] * Borrelia burgdorferi antibody (05/22/2025 12:34 PM EDT) [facility] Lyme Ab Negative Negative LAB CHEMISTRY METHOD 05/23/2025 7:08 AM EDT [facility] Comment: No laboratory evidence of infection with B. burgdorferi (Lyme disease). Negative results may occur in patients recently infected (<=14 days) with B. burgdorferi. If recent infection is suspected, repeat testing on a new sample collected in 7- 14 days is recommended. Blood Venous blood specimen / Unknown Venipuncture / Unknown 05/22/2025 12:34 PM EDT 05/22/2025 12:34 PM EDT [facility] BLOOD ORDERABLES Fin al Result Performing Organization Address [facility] de Phone Number [facility] [address] [place] [address], * C1 esterase inhibitor, functional (05/22/2025 12:34 PM EDT) [facility] C1 Esterase Inhibitor Function >100 % 05/28/2025 4:37 PM EDT [facility] Comment: Reference Range: > OR = 68 NORMAL 41-67 EQUIVOCAL < OR = 40 ABNORMAL Less than 40% of the reference functional activity indicates a likely diagnosis of hereditary angioedema or acquired C1 inhibitor deficiency. For additional information, please refer to http://education.[employer].com/faq/FAQ54 (This link is being provided for informational/educational purposes only.) Test Performed at: [facility] [place] [place] [address] [place] [address] Erasmo Hinton MD, PhD, [facility]AD[facility] Blood Venous blood specimen / Unknown Venipuncture / Unknown 05/22/2025 12:34 PM EDT 05/22/2025 12:34 PM EDT us [facility] BLOOD ORDERABLES Fin al Result [facility] [address] [place] [phone] * Gliadin antibodies, serum (05/22/2025 12:34 PM EDT) Gliadin IgA 4 <20 units LAB CHEMISTRY METHOD 05/29/2025 12:26 PM EDT [facility] Gliadin IgG 2 <20 units LAB CHEMISTRY METHOD 05/29/2025 12:26 PM EDT [facility] Gliadin IgA Antibody Negative Negative LAB CHEMISTRY METHOD 05/29/2025 12:26 PM EDT [facility] Gliadin IgG Antibody Negative Negative LAB CHEMISTRY METHOD 05/29/2025 12:26 PM EDT [facility] Blood Venous blood specimen / Unknown Venipuncture / Unknown 05/22/2025 12:34 PM EDT 05/22/2025 12:34 PM EDT us Chiki [facility] LAB BLOOD ORDERABLES Fin al Result [facility] [address] [place] [address], * Tissue transglutaminase, IgA (05/22/2025 12:34 PM EDT) Tissue Transglutaminase Ab, IgA Quant 1 <4 unit/mL LAB CHEMISTRY METHOD 05/29/2025 11:51 AM EDT [facility] Tissue Transglutaminase Ab, IgA Negative Negative LAB CHEMISTRY METHOD 05/29/2025 11:51 AM EDT [facility] Blood Venous blood specimen / Unknown Venipuncture / Unknown 05/22/2025 12:34 PM EDT 05/22/2025 12:34 PM EDT [facility] LAB BLOOD ORDERABLES Fin al Result Performing Organization Address [facility]/ZIP Co de Phone Number [facility] [address] [place] [address], [place] [phone] * Immunoglobulins IgG, IgA, IgM (05/22/2025 12:34 PM EDT) Total IgG 705 549 - 1,584 mg/dL LAB CHEMISTRY METHOD 05/22/2025 5:54 PM EDT [facility] IgA 185 61 - 348 mg/dL LAB CHEMISTRY METHOD 05/22/2025 5:54 PM EDT [facility] IgM 58 23 - 259 mg/dL LAB CHEMISTRY METHOD 05/22/2025 5:54 PM EDT [facility] Blood Venous blood specimen / Unknown Venipuncture / Unknown 05/22/2025 12:34 PM EDT 05/22/2025 12:34 PM EDT [facility] LAB BLOOD ORDERABLES Fin al Result [facility] [address] [place] [address], [place] [phone] * C4 complement (05/22/2025 12:34 PM EDT) C4 Complement 30 16 - 47 mg/dL LAB CHEMISTRY METHOD 05/22/2025 5:54 PM EDT [facility] Blood Venous blood specimen / Unknown Venipuncture / Unknown 05/22/2025 12:34 PM EDT 05/22/2025 12:34 PM EDT [facility] LAB BLOOD ORDERABLES Fin al Result Performing Organization Address [facility]/ZIP Co de Phone Number [facility] [address] [place] [address], [place] [phone] * (ABNORMAL) C-reactive protein (05/22/2025 12:34 PM EDT) [facility] C-Reactive Protein 0.75(H) <=0.50 mg/dL LAB CHEMISTRY METHOD 05/22/2025 5:54 PM EDT [facility] Blood Venous blood specimen / Unknown Venipuncture / Unknown 05/22/2025 12:34 PM EDT 05/22/2025 12:34 PM EDT [facility] LAB BLOOD ORDERABLES Fin al Result Performing Organization Address [facility] de Phone Number [facility] [address] [place] [address], [place] [phone] * Immunoglobulin IgE (05/22/2025 12:34 PM EDT) [facility] IgE 15.1 0.0 - 158.0 I Unit/mL LAB CHEMISTRY METHOD 05/22/2025 6:24 PM EDT [facility] Blood Venous blood specimen / Unknown Venipuncture / Unknown 05/22/2025 12:34 PM EDT 05/22/2025 12:34 PM EDT [facility] BLOOD ORDERABLES Fin al Result Performing Organization Address [facility]/ZIP Co de Phone Number [facility] [address] [place] [address], [place] [phone] * (ABNORMAL) Comprehensive metabolic panel (05/22/2025 12:34 PM EDT) [facility] Signature Sodium 140 133 - 145 mmol/L LAB CHEMISTRY METHOD 05/22/2025 5:[address] [facility] Potassium 4.0 3.5 - 5.5 mmol/L LAB CHEMISTRY METHOD 05/22/2025 5:[address] [facility] Chloride 103 96 - 110 mmol/L LAB CHEMISTRY METHOD 05/22/2025 5:[address] [facility] CO2 30 21 - 32 mmol/L LAB CHEMISTRY METHOD 05/22/2025 5:[address] [facility] Anion Gap 7 3 - 11 LAB CHEMISTRY METHOD 05/22/2025 5:[address] [facility] Glucose 109(H) 70 - 100 mg/dL LAB CHEMISTRY METHOD 05/22/2025 5:[address] [facility] BUN 17 5 - 25 mg/dL LAB CHEMISTRY METHOD 05/22/2025 5:[address] [facility] Creatinine 0.81 0.50 - 1.10 mg/dL LAB CHEMISTRY METHOD 05/22/2025 5:[address] [facility] eGFR 85 >=60 mL/min/1. 73m2 LAB CHEMISTRY METHOD 05/22/2025 5:[address] [facility] Comment:Calculation based on the Chronic Kidney Disease Epidemiology Collaboration (CKD-EPI) equation refit without adjustment for race. BUN/Creatinine Ratio 21.0 LAB CHEMISTRY METHOD 05/22/2025 5:[address] [facility] Calcium 9.3 8.5 - 10.5 mg/dL LAB CHEMISTRY METHOD 05/22/2025 5:[address] [facility] AST (SGOT) 30 10 - 42 unit/L LAB CHEMISTRY METHOD 05/22/2025 5:[address] [facility] ALT (SGPT) 46 10 - 60 unit/L LAB CHEMISTRY METHOD 05/22/2025 5:54 PM EDT [facility] Alkaline Phosphatase 114 42 - 121 unit/L LAB CHEMISTRY METHOD 05/22/2025 5:54 PM EDT [facility] Total Protein 6.8 6.0 - 8.0 g/dL LAB CHEMISTRY METHOD 05/22/2025 5:54 PM EDT [facility] Albumin 3.4 3.2 - 5.0 g/dL LAB CHEMISTRY METHOD 05/22/2025 5:54 PM EDT [facility] Total Bilirubin 0.4 0.0 - 1.4 mg/dL LAB CHEMISTRY METHOD 05/22/2025 5:54 PM EDT [facility] Blood Venous blood specimen / Unknown Venipuncture / Unknown 05/22/2025 12:34 PM EDT 05/22/2025 12:34 PM EDT [facility] LAB BLOOD ORDERABLES Fin al Result [facility] [address] [place] [address], * COLONOSCOPY Anesthesia - MAC; [facility] ENDOSCOPY (10/18/2024 8:26 AM EST) Anatomical Region Laterality Modality Endoscopy 10/18/2024 8:12 AM EST Impressions 10/18/2024 8:26 AM EST - The examined portion of the ileum was normal. - Normal mucosa in the entire examined colon. Biopsied. - Diverticulosis in the sigmoid colon. - Internal hemorrhoids. Recommendation: - Await pathology results. - Repeat colonoscopy in 10 years for screening purposes. Narrative 10/18/2024 8:26 AM EST [facility] Patient Name: Abebe Garay Procedure Date: 10/18/2024 8:12 AM Date of : 1970 Age: 54 Gender: Female Note Status: Finalized Attending MD: Lisa Lizama MD, Procedure Date No Time: 10/18/2024 Procedure: Colonoscopy Indications: Diarrhea Providers: Lisa Lizama MD Referring MD: Castillo Arevalo MD Medicines: Propofol per Anesthesia Complications: No immediate complications. Estimated Blood Loss: Estimated blood loss: none. Procedure: Pre-Anesthesia Assessment: - ASA Grade Assessment: III - A patient with severe systemic disease. After I obtained informed consent, the scope was passed under direct vision. Throughout the procedure, the patient's blood pressure, pulse, and oxygen saturations were monitored continuously.The Colonoscope was introduced through the anus and advanced to the terminal ileum. The colonoscopy was performed without difficulty. The patient tolerated the procedure well. The quality of the bowel preparation was excellent. Findings: The perianal and digital rectal examinations were normal. The terminal ileum appeared normal. Normal mucosa was found in the entire colon. Biopsies for histology were taken with a cold forceps from the entire colon for evaluation of microscopic colitis. A few small-mouthed diverticula were found in the sigmoid colon. Internal hemorrhoids were found during retroflexion. The hemorrhoids were Grade I (internal hemorrhoids that do not prolapse). Procedure Code(s): --- Professional --- 07118, Colonoscopy, flexible; with biopsy, single or multiple Diagnosis Code(s): --- Professional --- R19.7, Diarrhea, unspecified CPT copyright 2020 [employer]. All rights reserved. The codes documented in this report are preliminary and upon seam feller review may be revised to meet current compliance requirements. Lisa Lizama MD 10/18/2024 8:25:56 AM This report has been signed electronically.Lisa Lizama MD Number of Addenda: 0 Note Initiated On: 10/18/2024 8:12 AM Scope In: Scope Out: Endoscopy Department at [facility] - [address] [place] [phone] Procedure Note Lisa Lizama MD - 10/18/2024 [facility] Patient Name: Abebe Garay Procedure Date: 10/18/2024 8:12 AM Date of : 1970 Age: 54 Gender: Female Note Status: Finalized Attending MD: Lisa Lizama MD, Procedure Date No Time: 10/18/2024 Procedure: Colonoscopy Indications: Diarrhea Providers: Lisa Lizama MD Referring MD: Castillo Arevalo MD Medicines: Propofol per Anesthesia Complications: No immediate complications. Estimated Blood Loss: Estimated blood loss: none. Procedure: Pre-Anesthesia Assessment: - ASA Grade Assessment: III - A patient with severe systemic disease. After I obtained informed consent, the scope was passed under direct vision. Throughout theprocedure, the patient's blood pressure, pulse, and oxygen saturations were monitored continuously.The Colonoscope was introduced through the anus and advanced to the terminal ileum. The colonoscopy was performed without difficulty. The patient tolerated the procedure well. The quality of the bowel preparation was excellent. Findings: The perianal and digital rectal examinations were normal. The terminal ileum appeared normal. Normal mucosa was found in the entire colon.Biopsies for histology were taken with a cold forceps fromthe entire colon for evaluation of microscopiccolitis. A few small-mouthed diverticula were found in the sigmoid colon. Internal hemorrhoids were found duringretroflexion. The hemorrhoids were Grade I (internal hemorrhoids that do not prolapse). Procedure Code(s): --- Professional --- 34844, Colonoscopy, flexible; with biopsy, singleor multiple Diagnosis Code(s): --- Professional --- R19.7, Diarrhea, unspecified CPT copyright 2020 [employer]. All rights reserved. The codes documented in this report are preliminary and upon seam feller reviewmay be revised to meet current compliance requirements. Lisa Lizama MD 10/18/2024 8:25:56 AM This report has been signed electronically.Lisa Lizama MD Number of Addenda: 0 Note Initiated On: 10/18/2024 8:12 AM Scope In: Scope Out: Endoscopy Department at [facility] - [address] [place] [phone] IMPRESSION: - The examined portion of the ileum was normal. - Normal mucosa in the entire examined colon.Biopsied. - Diverticulosis in the sigmoid colon. - Internal hemorrhoids. Recommendation: - Await pathology results. - Repeat colonoscopy in 10 years for screening purposes. us Lisa Lizama MD GI~PROCEDURE ORDERABLES Final Result * [facility] DEXA AXIAL SKELETON (05/24/2024 4:58 PM EDT) Anatomical Region Laterality Modality Mammography 05/23/2024 1:43 PM EDT Narrative 05/24/2024 4:58 PM EDT [facility] Diagnostic Imaging Department [address] [place] [address] Patient: ABEBE GARAY Ramo /Age/Sex: 1970 - 54 - F Unit#: [id number] Location/Status: SPDIMAM/REG CLI Mnemonic/Ordering Site: MAMDEXAAX/SPMAM Ordering Physician: ENRIQUE HAMPTON MD [facility] Dexa Axial Skeleton - 05/23/24 - 1441 Report Status:Signed History: Low estrogen state due to menopause. Parent hip fracture. Current smoker. Comparison: No comparison imaging. Findings: Bone densitometry is performed utilizing dual energy x-ray absorptiometry (DXA) in the Gild unit. The lumbar spine and proximal femora are evaluated in the AP projection. The FRAX questionaire was completed. The results indicate normal bone mineral density, with a left femoral neck T- score of -0.6. The Z score is -0.3, indicating bone mineral density within the range of normal for age. The detailed DEXA report will be mailed to the referring physician's office. DualFemur FRAX: 10-year Probability of Fracture: Major Osteoporotic 10.1 percent Hip 0.2 percent. IMPRESSION: Normal bone mineral density. [id number] Dictating Physician: NILA LOPES MD Electronically Signed by: NILA LOPES MD Dic Date/Time: 05/24/241656 Sign date/Time: 05/24/241657 Procedure Note Nila Lopes MD - 06/13/2024 [facility] Diagnostic Imaging Department [address] [place] [address] Patient: ABEBE GARAY Ramo /Age/Sex: 1970 - 54 - F Unit#: [id number] [facility] Mnem[facility] Ordering Physician: ENRIQUE HAMPTON MD Ashlee Dexa Axial Skeleton - 05/23/24 - 1441 Report Status:Signed History: Low estrogen state due to menopause. Parent hip fracture.Current smoker. Comparison: No comparison imaging. Findings: Bone densitometry is performed utilizing dual energy x-ray absorptiometry(DXA) in the [employer] unit. The lumbar spine and proximal femora areevaluated in the AP projection. The FRAX questionaire was completed. The results indicate normal bone mineral density, with a left femoral neckT- score of -0.6. The Z score is -0.3, indicating bone mineral density withinthe range of normal for age. The detailed DEXA report will be mailed to the referring physician's office. DualFemur FRAX: 10-year Probability of Fracture: Major Osteoporotic 10.1 percent Hip 0.2 percent. IMPRESSION: Normal bone mineral density. [id number] Dictating Physician: NILA LOPES MD Electronically Signed by: NILA LOPES MD Dic Date/Time: 05/24/241656 Sign date/Time: 05/24/241657 Result [facility] Enrique Hampton MD IMG BI PROCEDURES Final Result * Depression Screening (10/26/2023) Pathologist [facility] Depression Screening Abstracted Result [facility] Provider HEALTH MAINTENANCE Final Result * (ABNORMAL) Hemoglobin A1c (10/25/2023) [facility] Hemoglobin A1C 8.1(A) <=6.5 % Blood Venous blood specimen / Unknown Result [facility] Provider LAB BLOOD ORDERABLES Dana l Result * Urine Albumin Creatinine Ratio (12/10/2022) Pathologist [facility] Urine Albumin Creatinine Ratio Abstracted Result [facility] Provider HEALTH MAINTENANCE Final Result * Pap Smear (12/10/2022) Pathologist [facility] Pap smear No Interpretation , Abstracted Comment:External Completion Result [facility] Provider HEALTH MAINTENANCE Final Result * Hepatitis C Screening (02/23/2022) Pathologist [facility] Hepatitis C Screening Abstracted Result [facility] Provider HEALTH MAINTENANCE Final Result from Last 3 Months or Most Recently Relevant to Health Maintenance Insurance MEDICAID - [place]ARE 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
--- OUTSIDE RECORDS SUMMARY | 2025-08-16 13:03 | XMS_ITS | Encounter Summary ---
Author Organization [facility] Address [address] [place] [address] Care Team Providers Care Utility Lineman Name Role Phone Castillo Arevalo MD Primary Care Provider [phone] Encounter Details Date Type Department Care Team (Late st Contact Info) Description 07/09/2025 Results Follow-Up Internal Medicine - [facility] [address] [place], [place] [phone] Castillo Arevalo MD [address] [place] [id number] Social History Tobacco Use Types Packs/Day Years Used Date Smoking Tobacco: Some Days Cigars Smokeless Tobacco: Never Alcohol Use Standard Drinks/Week Comments Yes 0 [...] Orientation Straight 07/24/2024 9: 30 AM EST documented as of this encounter Plan of Treatment Upcoming Encounters Date Type Department Care Team (Late st Contact Info) Description 12/03/2025 9:00 AM EDT Office Visit Internal Medicine - [facility] [address] [place], [place] [phone] Castillo Arevalo MD [address] [place] [address] documented as of this encounter Visit Diagnoses Not on filedocumented in this encounter Care Teams Utility Lineman Relationship Specialty Start Date End Date Castillo Arevalo MD [address] [place] [address] PCP - General Internal Medicine 06/26/24 documented as of this encounter
--- OUTSIDE RECORDS SUMMARY | 2025-08-16 13:03 | XMS_ITS | Patient Health Record ---
Author Organization [facility] Address [address] [place] [address] Care Team Providers Care Management Developer Name Role Phone [facility] [place] [facility] Primary Care Provider Unavailable ITALIA Isaacs Unavailable [phone] Allergies Allergen (clinical drug ingredient) Drug/Non Drug Allergy documented on EMR Reaction Allergy Type Onset Date Status amoxicillin Amoxicillin Unknown Drug Allergy Act rubi aspirin Aspirin reaction with another medication pt is currently taking Drug Allergy Active Reason For Referral No Information Medications Medication SIG (Take, Route, Frequency, Duration) Notes Start Date End Date Status Acetaminophen ER 650 MG Tablet Extended Release 2 tabs orally as needed Active traMADol HCl 50 MG Tablet 1 Tab orally t hree times a day; Duration: 7 day(s) Active Atorvastatin Calcium 40 MG Tablet 1 tablet Orally Once a day; Duration: 30 day(s) Active OneTouch Delica Plus [id number] - Miscellaneous dx E11.9 use as directed to test glucose once daily 03/30/2022 Active Multivitamin - Tablet 1 tablet Orally On ce a day; Duration: 30 day(s) Active Synthroid 175 MCG Tablet 1 tab 6 days a week, skipping the 7th orally once a day Active OneTouch Ultra - Strip dx E11.9 use as d irected to test glucose twice daily 03/30/2022 Active LORazepam 0.5 MG Tablet 1 tab(s) orally PRN Active Sulindac 200 MG Tablet 1 tab(s) orally t wice a day Active metFORMIN HCl ER 500 MG Tablet Extended Release 24 Hour 3 tabs, or as directed Orally Once a day 03/30/2022 Active Omeprazole 20 MG Tablet Delayed Release 1 Tab orally twice a day; Duration: 14 day(s) Active OneTouch Ultra 2 w/Device Kit dx E11.9 use as directed to test glucose 03/30/2022 Active Clindamycin HCl 300 MG Capsule 1 capsule Orally prior to dental appt. Active Losartan Potassium 25 MG Tablet 1 tab(s) orally once a day Active Acidophilus - Capsule 1 cap(s) orally on ce a day; Duration: 30 day(s) Active Social History Tobacco Use: Social History Observation Description Date Details (start date - stop date) Current Smoker NA - NA Social History Tobacco Use: Social Info Question Answer Notes Smoking Are you a: current smoker How often do you smoke Cigarettes? some days, but not every day Additional Details Category Social Info Options Details General Occupation: Disabled Past year's travels: None 2021 alcohol use: yes socially drug use: no Hobbies/Exercise habits: low imp act non resistive excersise QD Coffee/Tea/Soda: yes Coffee 2 QD, Te a Occ Marital Status Living with parents Pets cat, dog smokers in household no pt smokes c igars occ Problems Problem Type SNOMED Code ICD Code Onset Dates Problem Status W/U Status Risk Notes Problem Hypothyroidism (26711894) Hypothyroidism (acquired) (244.9) Active confirmed Problem Thyroid cancer (340233691) Cancer of thyroid (193) Active confirmed Problem Tobacco abuse (9050714813) Tobacco abuse (Z72.0) Active confirmed Problem Obesity (494225412) Obesity (E66.9) Active confirmed Problem Malignant neoplasm of thyroid gland (552600111) Malignant neoplasm of thyroid gland (C73) Active confirmed Problem Postoperative hypothyroidism (14448362) Postoperative hypothyroidism (E89.0) Active confirmed Problem Body mass index 30+ - obesity (144227417) BMI 30.0-30.9,adult (Z68.30) Active confirmed Problem Body mass index 30.00 to 34.99 (913390651475199) BMI 31.0-31.9,adult (Z68.31) Active confirmed Problem Body mass index 30.00 to 34.99 (958335538865912) BMI 34.0-34.9,adult (Z68.34) Active confirmed Problem Type 2 diabetes mellitus (74347054) Type 2 diabetes mellitus (E11.9) Active confirmed Plan Of Treatment Future Test Test Name Order Date VITAMIN B12 08/27/2022 Urine Microalbumin(Creat/MALB Ratio) TSH WITH REFLEX TO FT4 08/27/2022 Insurance Providers Payer Name Payer Address Payer Phone Subscriber Number Group Number Insured Name Patient Relationship to Insured Coverage Start Date Coverage End Date MEDICARE [employer] [facility] [employer] [address] [place] [phone] [id number] JARRODRADHA ESPINOZANE Self - patient is the insured [employer] [address] [place] [address] [id number] RADHA GARAYNE Self - patient is the insured Medical (General) History Medical History History ICD Code hypothyroid following thyroi dectomy 2001 - 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, 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; 110 mCi I-131; TG has remained undetectable, some prominent lymph nodes superiorly in neck, stable u/s 2012 fibromyalgia - Halista spondyloarthropathy mononucleosis Acid Reflux Anemia Vitamin D Deficiency Staph Infection L Foot Hypertension Severe Arthritis Left Knee Type 2 Diabetes - dx 2021 Surgical History Surgery Date(Month/Year) Bladder sling 11/2021 endoscpy and colonoscopy 2020 hysterectomy 07/2020 left TKR 11/01/2019 plate removed from left ankle 09/03/15 violette, plate, 11 screws placed in left leg 02/16/14 polyps removed from uterus and uterine a blasion 10/2011 arthroscopic knee surgery 1998 bilateral anthony-thyroidectomy 2001
--- OUTSIDE RECORDS SUMMARY | 2025-08-16 13:03 | XMS_ITS | Encounter Summary ---
Author Organization [facility] Address [address] [place] [address] Care Team Providers Care Test Lead Application Testing Name Role Phone Castillo Arevalo MD Primary Care Provider [phone] Reason for Visit * Reason Onset Date Comments Results 06/28/2025 Encounter Details Date Type Department Care Team (Late st Contact Info) Description 06/28/2025 Results Follow-Up Internal Medicine - [facility] [address] [place] [address] Aby Meade [place] Social History Tobacco Use Types Packs/Day Years [...] AM EST documented as of this encounter Progress Notes * Kayla Mckinley MA - 07/01/2025 1:44 PM EST Lvm for pt to call back on home #. Please transfer call to [phone]. [phone] or A side. * Kayla Mckinley MA - 07/01/2025 1:44 PM EST ----- Message from Shruthi Arevalo MD sent at 07/01/2025 12:57 PM EST ----- Please call patient and inform that I was sent her recent blood work and it shows that her thyroid levels are low. Please ask patient if she is on any thyroid medication. ----- Message ----- From: Aby Meade MA Sent: 06/28/2025 2:18 PM EST To: Castillo Arevalo MD Ok to wait ----- Message ----- From: Interface, Incoming Scanned Document Link - [facility] Sent: 06/28/2025 9:29 AM EDT To: Castillo Arevalo MD documented in this encounter Plan of Treatment Upcoming Encounters Date Type Department Care Team (Late st Contact Info) Description 12/03/2025 9:00 AM EDT [facility] [address] [place], [place] [phone] Castillo Arevalo MD [address] [place] [address] documented as of this encounter Visit Diagnoses Not on filedocumented in this encounter Care Teams Test Lead Application Testing Relationship Specialty Start Date End Date Castillo Arevalo MD [address] [place] [address] PCP - General Internal Medicine 06/26/24 documented as of this encounter
== END 2025-08-16 11:58 | disposition home or self-care (01) ==
LOC: HO.HPHYS 11:05
PROVIDERS: PCP Internal Medicine; Visit Provider Physical Medicine & Rehabilitation
DX: M47.816 Spondylosis without myelopathy or radiculopathy, lumbar region (principal)
CPT/HCPCS: 64493; 64494; 64495